=== PATIENT | male | born 1970 | race Caucasian/White ===

== ENCOUNTER 2016-05-29 13:08 | Emergency (ER) | payer OTHER ==
[2016-05-29 14:28] LABS: BASO % 0.4 % (0.0-1.0); EOS # 0.2 K/mm3 (0.0-0.50); EOS % 1.9 % (0.0-3.0); LARGE UNSTAINED CELL # 0.2 K/mm3 (0.0-0.4); LYMPH # 2.6 K/mm3 (1.5-4.5); LYMPH % 32.6 % (24.0-44.0); MEAN CORPUSCULAR HEMOGLOBIN 33.5 pg (27.0-33.0); MEAN CORPUSCULAR HGB CONC 34.2 g/dl (32.0-36.5); MONO # 0.3 K/mm3 (0.0-0.8); MONO % 4.2 % (0.0-5.0); NEUTROPHILS # 4.6 K/mm3 (1.8-7.7); NEUTROPHILS % 58.9 % (36.0-66.0); PLATELET COUNT, AUTOMATED 210 k/mm3 (150-450); RED CELL DISTRIBUTION WIDTH 12.5 % (11.5-14.5); WHITE BLOOD COUNT 7.9 K/mm3 (4.0-10.0)
[2016-05-29 14:51] LABS: ALBUMIN 4.2 GM/DL (3.2-5.2); ALBUMIN/GLOBULIN RATIO 1.14 (1.00-1.93); ALKALINE PHOSPHATASE 63 U/L (45-117); ALT/SGPT 81 U/L (12-78); ANION GAP 8 MEQ/L (8-16); AST/SGOT 41 U/L (15-37); BILIRUBIN,TOTAL 0.7 MG/DL (0.2-1.0); BLOOD UREA NITROGEN 9 MG/DL (7-18); CALCIUM LEVEL 9.4 MG/DL (8.5-10.1); CARBON DIOXIDE LEVEL 26 MEQ/L (21-32); CHLORIDE LEVEL 107 MEQ/L (98-107); CREATININE FOR GFR 0.87 MG/DL (0.70-1.30); GLOMERULAR FILTRATION RATE > 60.0 (>60); GLUCOSE, FASTING 94 MG/DL (70-105); SODIUM LEVEL 141 MEQ/L (136-145); TOTAL PROTEIN 7.9 GM/DL (6.4-8.2)
--- NOTE | 2016-05-29 15:04 | REP ---
Bilateral lower extremity Duplex Doppler venous ultrasound: Real time compression and duplex Doppler interrogation of the bilateral lower extremity deep venous system is performed. Bilaterally, the common femoral, superficial femoral and popliteal veins are fully compressible with transducer pressure and demonstrate normal spontaneous and phasic flow, without evidence of deep venous thrombosis. Impression: No evidence of deep venous thrombosis of the bilateral lower extremity femoral popliteal venous system. Incidental note is made of an enlarged lymph node in the left inguinal region 3.8 x 1.8 x 1.7 cm. Signed by Demetrius Esteban MD 05/29/2016 02:56 P
[2016-05-29 15:15] LABS: CALCIUM OXALATE CRYSTALS SMALL
--- NOTE | 2016-05-29 15:39 | EDDOCDS ---
Physician Documentation [facility] Name: Elio Rodriguez Age: 45 yrs Sex: Male : 1970 Arrival Date: 05/29/2016 Time: 13:08 Bed PR Private MD: Doreen Davis E Disposition: 05/29/16 15:28 Discharged to Home/Self Care. Impression: Edema, unspecified - bilateral peripheral. - Condition is Stable. - Discharge Instructions: Edema, [id number]. - Medication Reconciliation, Local Pharmacy Hours form. - Follow up: Doreen Davis; When: Call to arrange an appointment; Reason: Further diagnostic work-up, Recheck today's complaints, Continuance of care. - Problem is an ongoing problem. - Symptoms are unchanged. Historical: - Allergies: no known allergies; - Home Meds: 1. pramipexole 1 mg oral tab four times a day 2. trihexyphenidyl 2 mg Oral tab 3 times per day 3. Azilect 1 mg oral tab 1 tab once daily 4. Xanax 0.25 mg Oral tab 3 times per day prn (Last dose: 05/29/2016 11:30) - PMHx: Parkinson's Disease; - PSHx: throat polyp; - Social history: Smoking status: Patient uses tobacco products, current every day smoker. No barriers to communication noted, The patient speaks fluent Divehi, Speaks appropriately for age. - Family history: Not pertinent. - : The pt / caregiver states he / she is not on anticoagulants. Home medication list is obtained from the patient. - Exposure Risk Screening:: None identified. Vital Signs: 05/29 13:09 BP 139 / 99; Pulse 86; Resp 18; Temp 98.6; Pulse Ox 97% ; Weight 117.03 kg / 258.01 elp lbs; Height 5 ft. 11 in. (180.34 cm); Pain 0/10; 15:19 BP 130 / 77; Pulse 70; Resp 18; Temp 96.7(T); Pulse Ox 97% on R/A; Pain 0/10; jb5 13:09 Body Mass Index 35.98 (117.03 kg, 180.34 cm) elp MDM: 13:38 Financial registration complete. lg 14:07 CBC with Diff Ordered. EDMS 14:07 Complete Comphrensive Metabolic Ordered. EDMS 14:07 Pt & Aptt Ordered. EDMS 14:08 US Lower Extremity R/O DVT Ordered. EDMS 14:11 Urinalysis Ordered. EDMS 15:15 CBC with Diff Reviewed. btw 15:15 Complete Comphrensive Metabolic Reviewed. btw 15:15 Pt & Aptt Reviewed. btw 15:16 [facility] Payment Agreement was scanned into [employer] and attached to record. lg 15:25 Urinalysis Reviewed. btw Signatures: Dispatcher MedHost EDMS Roxanne Adorno, RN RN srm Sonja White, Reg Reg lg Ricardo Martin PA PA btw Brit Moreira RN RN [facility] The chart was reviewed and I authenticate all verbal orders and agree with the evaluation and treatment provided.Attachments: 15:16 [facility] Payment Agreement lg MTDD
--- NOTE | 2016-05-29 15:39 | EDDOCDS ---
Nurse's Notes [facility] Name: Elio Rodriguez Age: 45 yrs Sex: Male : 1970 Arrival Date: 05/29/2016 Time: 13:08 Bed PR Private MD: Doreen Davis E Diagnosis: Edema, unspecified-bilateral peripheral Presentation: 05/29 13:11 Presenting complaint: Patient states: 2-3 days bilateral leg swelling. no pain. Adult [facility] Sepsis Screening: The patient does not have new or worsening altered mentation. Patient's respiratory rate is less than 22. Systolic blood pressure is greater than 100. Patient has a qSOFA score of 0- Negative Sepsis Screen. Suicide/Homicide risk assessment- the patient denies having any suicidal and/or homicidal ideations and does not present with any other emotional, behavioral or mental health complaints. Status: Patient is not a program services assistant or dependent. Transition of care: patient was not received from another setting of care. 13:11 Acuity: LISSA Level 4 [facility] 13:11 Method Of Arrival: Walkin/Carried/Asstd [facility] Triage Assessment: 13:14 General: Appears in no apparent distress, Behavior is appropriate for age, cooperative. srm Pain: Denies pain. HIV screening NA for this visit Offered previously. Historical: - Allergies: no known allergies; - Home Meds: 1. pramipexole 1 mg oral tab four times a day 2. trihexyphenidyl 2 mg Oral tab 3 times per day 3. Azilect 1 mg oral tab 1 tab once daily 4. Xanax 0.25 mg Oral tab 3 times per day prn (Last dose: 05/29/2016 11:30) - PMHx: Parkinson's Disease; - PSHx: throat polyp; - Social history: Smoking status: Patient uses tobacco products, current every day smoker. No barriers to communication noted, The patient speaks fluent Vietnamese, Speaks appropriately for age. - Family history: Not pertinent. - : The pt / caregiver states he / she is not on anticoagulants. Home medication list is obtained from the patient. - Exposure Risk Screening:: None identified. Screenin:20 Screening information is obtained from the patient. Fall risk: No risks identified. [facility] Assistance ADL's: requires no assistance with activities of daily living. Abuse/DV Screen: The patient / caregiver reports he/she is: not in a situation that causes fear, pain or injury. Nutritional screening: No deficits noted. Advance Directives: There is no active DNR order. home support is adequate. Assessment: 13:20 General: Appears in no apparent distress, comfortable, Behavior is appropriate for age, [facility] cooperative. Musculoskeletal: Range of motion intact in all extremities. ambulates with steady gait, no assist required. 15:36 General: Appears in no apparent distress, comfortable, Behavior is appropriate for age, [facility] cooperative, reviewed discharge instructions with patient, encouraged and answered questions, patient denies further needs. Vital Signs: 13:09 BP 139 / 99; Pulse 86; Resp 18; Temp 98.6; Pulse Ox 97% ; Weight 117.03 kg; Height 5 elp ft. 11 in. (180.34 cm); Pain 0/10; 15:19 BP 130 / 77; Pulse 70; Resp 18; Temp 96.7(T); Pulse Ox 97% on R/A; Pain 0/10; jb5 13:09 Body Mass Index 35.98 (117.03 kg, 180.34 cm) el Vitals: 13:09 Log In Time: May 29, 2016 at 13:07. el ED Course: 13:09 Patient visited by Shaye uQintana PCA. elp 13:09 Doreen Davis is Private Physician. elp 13:09 Patient moved to Waiting elp 13:10 Patient visited by Shaye Quintana PCA. elp 13:10 Patient moved to Pre RCE elp 13:12 Triage Initiated srm 13:18 Patient moved to Triage 1 jb5 13:20 The patient / caregiver is instructed regarding the plan of care and ED course. cj 13:31 Ricardo Martin PA is PHCP. btw 13:31 Mickey Davidson MD is Attending Physician. btw 13:31 Patient visited by Ricardo Martin PA. btw 14:14 Patient visited by Adriana Calle PCA. jb5 14:14 Patient moved to TR1 jb5 14:14 Urinalysis Sent. jb5 14:14 Pt & Aptt Sent. jb5 14:14 Complete Comphrensive Metabolic Sent. jb5 14:14 CBC with Diff Sent. jb5 15:12 Patient visited by Adriana Calle PCA. jb5 15:15 Patient moved to jb5 15:16 [facility] [place] Agreement was scanned into [employer] and attached to record. lg 15:19 Patient visited by Adriana Calle PCA. jb5 15:28 Doreen Davis is Referral Physician. btw 15:30 US Lower Extremity R/O DVT Returned. EDMS 15:36 No IV's were initiated during this patient's visit. No procedures done that require [facility] assistance. Order Results: Lab Order: CBC with Diff; SPEC'M 05/29/16 14:15 Test: WHITE BLOOD COUNT; Value: 7.9; Range: 4.0-10.0; Units: K/mm3; Status: F Test: RED BLOOD COUNT; Value: 4.90; Range: 4.30-6.10; Units: M/mm3; Status: F Test: HEMOGLOBIN; Value: 16.4; Range: 14.0-18.0; Units: g/dl; Status: F Test: HEMATOCRIT; Value: 48.0; Range: 42.0-52.0; Units: %; Status: F Test: MEAN CORPUSCULAR VOLUME; Value: 98.0; Range: 80.0-96.0; Abnormal: Above high normal; Units: fl; Status: F Test: MEAN CORPUSCULAR HEMOGLOBIN; Value: 33.5; Range: 27.0-33.0; Abnormal: Above high normal; Units: pg; Status: F Test: MEAN CORPUSCULAR HGB CONC; Value: 34.2; Range: 32.0-36.5; Units: g/dl; Status: F Test: RED CELL DISTRIBUTION WIDTH; Value: 12.5; Range: 11.5-14.5; Units: %; Status: F Test: PLATELET COUNT, AUTOMATED; Value: 210; Range: 150-450; Units: k/mm3; Status: F Test: NEUTROPHILS %; Value: 58.9; Range: 36.0-66.0; Units: %; Status: F Test: LYMPH %; Value: 32.6; Range: 24.0-44.0; Units: %; Status: F Test: MONO %; Value: 4.2; Range: 0.0-5.0; Units: %; Status: F Test: EOS %; Value: 1.9; Range: 0.0-3.0; Units: %; Status: F Test: BASO %; Value: 0.4; Range: 0.0-1.0; Units: %; Status: F Test: LARGE UNSTAINED CELL %; Value: 2.0; Range: 0.0-4.0; Units: %; Status: F Test: NEUTROPHILS #; Value: 4.6; Range: 1.8-7.7; Units: K/mm3; Status: F Test: LYMPH #; Value: 2.6; Range: 1.5-4.5; Units: K/mm3; Status: F Test: MONO #; Value: 0.3; Range: 0.0-0.8; Units: K/mm3; Status: F Test: EOS #; Value: 0.2; Range: 0.0-0.50; Units: K/mm3; Status: F Test: BASO #; Value: 0.0; Range: 0.0-0.2; Units: K/mm3; Status: F Test: LARGE UNSTAINED CELL #; Value: 0.2; Range: 0.0-0.4; Units: K/mm3; Status: F Lab Order: Complete Comphrensive Metabolic; SPEC'M 05/29/16 14:15 Test: GLUCOSE, FASTING; Value: 94; Range: 70-105; Units: MG/DL; Status: F Test: BLOOD UREA NITROGEN; Value: 9; Range: 7-18; Units: MG/DL; Status: F Test: CREATININE FOR GFR; Value: 0.87; Range: 0.70-1.30; Units: MG/DL; Status: F Test: GLOMERULAR FILTRATION RATE; Value: > 60.0; Range: >60; Status: F Test: SODIUM LEVEL; Value: 141; Range: 136-145; Units: MEQ/L; Status: F Test: POTASSIUM SERUM; Value: 4.0; Range: 3.5-5.1; Units: MEQ/L; Status: F Test: CHLORIDE LEVEL; Value: 107; Range: 98-107; Units: MEQ/L; Status: F Test: CARBON DIOXIDE LEVEL; Value: 26; Range: 21-32; Units: MEQ/L; Status: F Test: ANION GAP; Value: 8; Range: 8-16; Units: MEQ/L; Status: F Test: CALCIUM LEVEL; Value: 9.4; Range: 8.5-10.1; Units: MG/DL; Status: F Test: AST/SGOT; Value: 41; Range: 15-37; Abnormal: Above high normal; Units: U/L; Status: F Test: ALT/SGPT; Value: 81; Range: 12-78; Abnormal: Above high normal; Units: U/L; Status: F Test: ALKALINE PHOSPHATASE; Value: 63; Range: 45-117; Units: U/L; Status: F Test: BILIRUBIN,TOTAL; Value: 0.7; Range: 0.2-1.0; Units: MG/DL; Status: F Test: TOTAL PROTEIN; Value: 7.9; Range: 6.4-8.2; Units: GM/DL; Status: F Test: ALBUMIN; Value: 4.2; Range: 3.2-5.2; Units: GM/DL; Status: F Test: ALBUMIN/GLOBULIN RATIO; Value: 1.14; Range: 1.00-1.93; Status: F Test Note: ; Units are mL/min/1.73 m2 Chronic Kidney Disease Staging per NKF: Stage I & II GFR >=60 Normal to Mildly Decreased Stage III GFR 30-59 Moderately Decreased Stage IV GFR 15-29 Severely Decreased Stage V GFR <15 Very Little GFR Left ESRD GFR <15 on ROCK SINGER Lab Order: Pt & Aptt; SPEC'M 05/29/16 14:15 Test: PROTHROMBIN TIME; Value: 13.3; Range: 12.3-14.5; Units: SECONDS; Status: F Test: INR; Value: 1.00; Status: F Test: PARTIAL THROMBOPLASTIN TIME; Value: 27.0; Range: 26.6-37.1; Units: SECONDS; Status: F Test Note: ; THERAPUTIC HUMAN INR VALUES INDICATIONS NORMAL RANGES PROPHYLAXIS/TREATMENT OF: VENOUS THROMBOSIS 2.0-3.0 PULMONARY EMBOLISM 2.0-3.0 PREVENTION OF SYSTEMIC EMBOLISM FROM: TISSUE HEART VALVES 2.0-3.0 ACUTE MYOCARDIAL INFARCTION 2.0-3.0 VALVULAR HEART DISEASE 2.0-3.0 ATRIAL FIBRILLATION 2.0-3.0 MECHANICAL VALVES(HIGH RISK) 2.5-3.5 RECURRENT MYOCARDIAL INFARCTION 2.5-3.5 Lab Order: Urinalysis; SPEC'M 05/29/16 14:57 Test: APPEARANCE, URINE; Value: HAZY; Range: CLEAR; Status: F Test: COLOR, URINE; Value: YELLOW; Range: YELLOW; Status: F Test: PH,URINE; Value: 6.0; Range: 5.0-9.0; Units: UNITS; Status: F Test: SPECIFIC GRAVITY URINE AUTO; Value: 1.018; Range: 1.002-1.035; Status: F Test: PROTEIN, URINE AUTO; Value: NEGATIVE; Range: NEGATIVE; Units: mg/dL; Status: F Test: GLUCOSE, URINE (UA) AUTO; Value: NEGATIVE; Range: NEGATIVE; Units: mg/dL; Status: F Test: KETONE, URINE AUTO; Value: NEGATIVE; Range: NEGATIVE; Units: mg/dL; Status: F Test: UROBILINOGEN, URINE AUTO; Value: 0.2; Range: 0.0-2.0; Units: mg/dL; Status: F Test: BILIRUBIN, URINE AUTO; Value: NEGATIVE; Range: NEGATIVE; Status: F Test: NITRITE, URINE AUTO; Value: NEGATIVE; Range: NEGATIVE; Status: F Test: LEUKOCYTE ESTERASE, URINE AUTO; Value: TRACE; Range: NEGATIVE; Abnormal: Above high normal; Status: F Test: BLOOD, URINE BLOOD; Value: 3+; Range: NEGATIVE; Abnormal: Above high normal; Status: F Test: WBC, URINE AUTO; Value: 7; Range: 0-3; Abnormal: Above high normal; Units: /HPF; Status: F Test: RBC, URINE AUTO; Value: TNTC; Range: 0-3; Abnormal: Above high normal; Units: /HPF; Status: F Test: BACTERIA, URINE AUTO; Value: NEGATIVE; Range: NEGATIVE; Status: F Test: SQUAMOUS EPITHELIAL CELL UR AU; Value: 2; Range: 0-6; Units: /HPF; Status: F Test: MUCUS, URINE; Value: SMALL; Range: NEGATIVE; Status: F Test: SPERM, URINE AUTO; Value: SMALL; Range: NONE; Abnormal: Above high normal; Status: F Test: HYALINE CAST, URINE AUTO; Value: 0; Range: 0-1; Units: /LPF; Status: F Test: AMORPHOUS SEDIMENT; Value: SMALL; Range: NEGATIVE; Abnormal: Above high normal; Status: F Test: CALCIUM OXALATE CRYSTALS; Value: SMALL; Range: NONE; Status: F Radiology Order: US Lower Extremity R/O DVT Test: US Lower Extremity R/O DVT REASON FOR EXAMINATION: ? DVT; Bilateral lower extremity Duplex Doppler venous ultrasound:; ; Real time compression and duplex Doppler interrogation of the bilateral lower; extremity deep venous system is performed. Bilaterally, the common femoral,; superficial femoral and popliteal veins are fully compressible with transducer; pressure and demonstrate normal spontaneous and phasic flow, without evidence of; deep venous thrombosis.; ; Impression:; ; No evidence of deep venous thrombosis of the bilateral lower extremity femoral; popliteal venous system. Incidental note is made of an enlarged lymph node in; the left inguinal region 3.8 x 1.8 x 1.7 cm.; ; ; Signed by; Demetrius Esteban MD 05/29/2016 02:56 P; Outcome: 15:28 Discharge ordered by Provider. btw 15:36 Discharge Assessment: Patient awake, alert and oriented x 3. No cognitive and/or [facility] functional deficits noted. Patient verbalized understanding of disposition instructions. patient administered narcotics - no. The following High Risk Discharge criteria are identified: None. Discharged to home ambulatory. Condition: good Condition: stable Condition: improved. Discharge instructions given to patient, Instructed on discharge instructions, follow up and referral plans. Demonstrated understanding of instructions, Pt was receptive of discharge instructions/ teaching. Ultrasound Study completed. Property :Personal belongings accompany Pt. 15:38 Patient left the ED. [facility] Signatures: Dispatcher [employer] EDMS Roxanne Adorno, Sonja Ahuja RN, Reg Reg Adriana Umana, [employer] jb5 Ricardo Martin PA PA btw Brit Moreira RN RN [facility] Shaye Quintana, [employer] elp MTDD
--- NOTE | 2016-06-02 09:18 | EDDOCDS ---
Physician Documentation [facility] Name: Elio Rodriguez Age: 45 yrs Sex: Male : 1970 Arrival Date: 05/29/2016 Time: 13:08 Bed PR Private MD: Doreen Russo E Disposition: 05/29/16 15:28 Discharged to Home/Self Care. Impression: Edema, unspecified - bilateral peripheral. - Condition is Stable. - Discharge Instructions: Edema, [id number]. - Medication Reconciliation, Local Pharmacy Hours form. - Follow up: Doreen Russo; When: Call to arrange an appointment; Reason: Further diagnostic work-up, Recheck today's complaints, Continuance of care. - Problem is an ongoing problem. - Symptoms are unchanged. Historical: - Allergies: no known allergies; - Home Meds: 1. pramipexole 1 mg oral tab four times a day 2. trihexyphenidyl 2 mg Oral tab 3 times per day 3. Azilect 1 mg oral tab 1 tab once daily 4. Xanax 0.25 mg Oral tab 3 times per day prn (Last dose: 05/29/2016 11:30) - PMHx: Parkinson's Disease; - PSHx: throat polyp; - Social history: Smoking status: Patient uses tobacco products, current every day smoker. No barriers to communication noted, The patient speaks fluent Portuguese, Speaks appropriately for age. - Family history: Not pertinent. - : The pt / caregiver states he / she is not on anticoagulants. Home medication list is obtained from the patient. - Exposure Risk Screening:: None identified. Vital Signs: 05/29 13:09 BP 139 / 99; Pulse 86; Resp 18; Temp 98.6; Pulse Ox 97% ; Weight 117.03 kg / 258.01 elp lbs; Height 5 ft. 11 in. (180.34 cm); Pain 0/10; 15:19 BP 130 / 77; Pulse 70; Resp 18; Temp 96.7(T); Pulse Ox 97% on R/A; Pain 0/10; jb5 13:09 Body Mass Index 35.98 (117.03 kg, 180.34 cm) elp MDM: 13:38 Financial registration complete. lg 14:07 CBC with Diff Ordered. EDMS 14:07 Complete Comphrensive Metabolic Ordered. EDMS 14:07 Pt & Aptt Ordered. EDMS 14:08 US Lower Extremity R/O DVT Ordered. EDMS 14:11 Urinalysis Ordered. EDMS 15:15 CBC with Diff Reviewed. btw 15:15 Complete Comphrensive Metabolic Reviewed. btw 15:15 Pt & Aptt Reviewed. btw 15:16 [facility] [place] Agreement was scanned into [employer] and attached to record. lg 15:25 Urinalysis Reviewed. btw 05/30 09:19 T-Sheet-- Draft Copy was scanned into [employer] and attached to record. seh 14:58 ED course: dr russo faxed formal report of us for mlg. ml Signatures: Dispatcher MedHost EDME Shereen Awad MD MD ml Michelson, Staci, RN RN [facility] Sonja White, Reg Reg lg Ricardo Martin PA PA [facility] Brit Moreira RN RN [facility] Samantha Barth [facility] The chart was reviewed and I authenticate all verbal orders and agree with the evaluation and treatment provided.Attachments: 05/29 15:16 [facility] Payment Agreement lg 05/30 09:19 T-Sheet-- Draft Copy se Chart Complete MTDD
--- NOTE | 2016-06-02 09:18 | EDDOCDS ---
Physician Documentation [facility] Name: Elio Rodriguez Age: 45 yrs Sex: Male : 1970 Arrival Date: 05/29/2016 Time: 13:08 Bed PR Private MD: Doreen Russo E Disposition: 05/29/16 15:28 Discharged to Home/Self Care. Impression: Edema, unspecified - bilateral peripheral. - Condition is Stable. - Discharge Instructions: Edema, [id number]. - Medication Reconciliation, Local Pharmacy Hours form. - Follow up: Doreen Russo; When: Call to arrange an appointment; Reason: Further diagnostic work-up, Recheck today's complaints, Continuance of care. - Problem is an ongoing problem. - Symptoms are unchanged. Historical: - Allergies: no known allergies; - Home Meds: 1. pramipexole 1 mg oral tab four times a day 2. trihexyphenidyl 2 mg Oral tab 3 times per day 3. Azilect 1 mg oral tab 1 tab once daily 4. Xanax 0.25 mg Oral tab 3 times per day prn (Last dose: 05/29/2016 11:30) - PMHx: Parkinson's Disease; - PSHx: throat polyp; - Social history: Smoking status: Patient uses tobacco products, current every day smoker. No barriers to communication noted, The patient speaks fluent Faroese, Speaks appropriately for age. - Family history: Not pertinent. - : The pt / caregiver states he / she is not on anticoagulants. Home medication list is obtained from the patient. - Exposure Risk Screening:: None identified. Vital Signs: 05/29 13:09 BP 139 / 99; Pulse 86; Resp 18; Temp 98.6; Pulse Ox 97% ; Weight 117.03 kg / 258.01 elp lbs; Height 5 ft. 11 in. (180.34 cm); Pain 0/10; 15:19 BP 130 / 77; Pulse 70; Resp 18; Temp 96.7(T); Pulse Ox 97% on R/A; Pain 0/10; jb5 13:09 Body Mass Index 35.98 (117.03 kg, 180.34 cm) elp MDM: 13:38 Financial registration complete. lg 14:07 CBC with Diff Ordered. EDMS 14:07 Complete Comphrensive Metabolic Ordered. EDMS 14:07 Pt & Aptt Ordered. EDMS 14:08 US Lower Extremity R/O DVT Ordered. EDMS 14:11 Urinalysis Ordered. EDMS 15:15 CBC with Diff Reviewed. btw 15:15 Complete Comphrensive Metabolic Reviewed. btw 15:15 Pt & Aptt Reviewed. btw 15:16 [facility] [place] Agreement was scanned into [employer] and attached to record. lg 15:25 Urinalysis Reviewed. btw 05/30 09:19 T-Sheet-- Draft Copy was scanned into [employer] and attached to record. seh 14:58 ED course: dr russo faxed formal report of us for mlg. ml Signatures: Dispatcher [employer] EDND Shereen Awad MD MD ml Michelson, Staci, RN RN [facility] Sonja White, Reg Reg lg Ricardo Martin PA PA [facility] Brit Moreira RN RN [facility] Samantha Barth [facility] The chart was reviewed and I authenticate all verbal orders and agree with the evaluation and treatment provided.Attachments: 05/29 15:16 COUNTS INCLUDE 234 BEDS AT THE [facility] Payment Agreement lg 05/30 09:19 T-Sheet-- Draft Copy se Chart Complete MTDD
--- NOTE | 2016-06-02 09:19 | EDDOCDS ---
Nurse's Notes Name: Elio Rodriguez Age: 45 yrs Sex: Male : 1970 Arrival Date: 05/29/2016 Time: 13:08 Bed PR Private MD: Doreen Davis E Diagnosis: Edema, unspecified-bilateral peripheral Presentation: 05/29 13:11 Presenting complaint: Patient states: 2-3 days bilateral leg swelling. no pain. Adult [facility] Sepsis Screening: The patient does not have new or worsening altered mentation. Patient's respiratory rate is less than 22. Systolic blood pressure is greater than 100. Patient has a qSOFA score of 0- Negative Sepsis Screen. Suicide/Homicide risk assessment- the patient denies having any suicidal and/or homicidal ideations and does not present with any other emotional, behavioral or mental health complaints. Status: Patient is not a customer sales service manager or dependent. Transition of care: patient was not received from another setting of care. 13:11 Acuity: LISSA Level 4 [facility] 13:11 Method Of Arrival: Walkin/Carried/Asstd [facility] Triage Assessment: 13:14 General: Appears in no apparent distress, Behavior is appropriate for age, cooperative. srm Pain: Denies pain. HIV screening NA for this visit Offered previously. Historical: - Allergies: no known allergies; - Home Meds: 1. pramipexole 1 mg oral tab four times a day 2. trihexyphenidyl 2 mg Oral tab 3 times per day 3. Azilect 1 mg oral tab 1 tab once daily 4. Xanax 0.25 mg Oral tab 3 times per day prn (Last dose: 05/29/2016 11:30) - PMHx: Parkinson's Disease; - PSHx: throat polyp; - Social history: Smoking status: Patient uses tobacco products, current every day smoker. No barriers to communication noted, The patient speaks fluent Latvian, Speaks appropriately for age. - Family history: Not pertinent. - : The pt / caregiver states he / she is not on anticoagulants. Home medication list is obtained from the patient. - Exposure Risk Screening:: None identified. Screenin:20 Screening information is obtained from the patient. Fall risk: No risks identified. [facility] Assistance ADL's: requires no assistance with activities of daily living. Abuse/DV Screen: The patient / caregiver reports he/she is: not in a situation that causes fear, pain or injury. Nutritional screening: No deficits noted. Advance Directives: There is no active DNR order. home support is adequate. Assessment: 13:20 General: Appears in no apparent distress, comfortable, Behavior is appropriate for age, [facility] cooperative. Musculoskeletal: Range of motion intact in all extremities. ambulates with steady gait, no assist required. 15:36 General: Appears in no apparent distress, comfortable, Behavior is appropriate for age, [facility] cooperative, reviewed discharge instructions with patient, encouraged and answered questions, patient denies further needs. Vital Signs: 13:09 BP 139 / 99; Pulse 86; Resp 18; Temp 98.6; Pulse Ox 97% ; Weight 117.03 kg; Height 5 elp ft. 11 in. (180.34 cm); Pain 0/10; 15:19 BP 130 / 77; Pulse 70; Resp 18; Temp 96.7(T); Pulse Ox 97% on R/A; Pain 0/10; jb5 13:09 Body Mass Index 35.98 (117.03 kg, 180.34 cm) el Vitals: 13:09 Log In Time: May 29, 2016 at 13:07. el ED Course: 13:09 Patient visited by Shaye Quintana PCA. elp 13:09 Doreen Davis is Private Physician. elp 13:09 Patient moved to Waiting elp 13:10 Patient visited by Shaye Quintana PCA. elp 13:10 Patient moved to Pre RCE elp 13:12 Triage Initiated srm 13:18 Patient moved to Triage 1 jb5 13:20 The patient / caregiver is instructed regarding the plan of care and ED course. cj 13:31 Ricardo Martin PA is PHCP. btw 13:31 Mickey Davidson MD is Attending Physician. btw 13:31 Patient visited by Ricardo Martin PA. btw 14:14 Patient visited by Adriana Calle PCA. jb5 14:14 Patient moved to TR1 jb5 14:14 Urinalysis Sent. jb5 14:14 Pt & Aptt Sent. jb5 14:14 Complete Comphrensive Metabolic Sent. jb5 14:14 CBC with Diff Sent. jb5 15:12 Patient visited by Adriana Calle PCA. jb5 15:15 Patient moved to jb5 15:16 [facility] [place] Agreement was scanned into [employer] and attached to record. lg 15:19 Patient visited by Adriana Calle PCA. jb5 15:28 Doreen Davis is Referral Physician. btw 15:30 US Lower Extremity R/O DVT Returned. EDMS 15:36 No IV's were initiated during this patient's visit. No procedures done that require [facility] assistance. 05/30 09:19 T-Sheet-- Draft Copy was scanned into [employer] and attached to record. [facility] Order Results: Lab Order: CBC with Diff; SPEC'M 05/29/16 14:15 Test: WHITE BLOOD COUNT; Value: 7.9; Range: 4.0-10.0; Units: K/mm3; Status: F Test: RED BLOOD COUNT; Value: 4.90; Range: 4.30-6.10; Units: M/mm3; Status: F Test: HEMOGLOBIN; Value: 16.4; Range: 14.0-18.0; Units: g/dl; Status: F Test: HEMATOCRIT; Value: 48.0; Range: 42.0-52.0; Units: %; Status: F Test: MEAN CORPUSCULAR VOLUME; Value: 98.0; Range: 80.0-96.0; Abnormal: Above high normal; Units: fl; Status: F Test: MEAN CORPUSCULAR HEMOGLOBIN; Value: 33.5; Range: 27.0-33.0; Abnormal: Above high normal; Units: pg; Status: F Test: MEAN CORPUSCULAR HGB CONC; Value: 34.2; Range: 32.0-36.5; Units: g/dl; Status: F Test: RED CELL DISTRIBUTION WIDTH; Value: 12.5; Range: 11.5-14.5; Units: %; Status: F Test: PLATELET COUNT, AUTOMATED; Value: 210; Range: 150-450; Units: k/mm3; Status: F Test: NEUTROPHILS %; Value: 58.9; Range: 36.0-66.0; Units: %; Status: F Test: LYMPH %; Value: 32.6; Range: 24.0-44.0; Units: %; Status: F Test: MONO %; Value: 4.2; Range: 0.0-5.0; Units: %; Status: F Test: EOS %; Value: 1.9; Range: 0.0-3.0; Units: %; Status: F Test: BASO %; Value: 0.4; Range: 0.0-1.0; Units: %; Status: F Test: LARGE UNSTAINED CELL %; Value: 2.0; Range: 0.0-4.0; Units: %; Status: F Test: NEUTROPHILS #; Value: 4.6; Range: 1.8-7.7; Units: K/mm3; Status: F Test: LYMPH #; Value: 2.6; Range: 1.5-4.5; Units: K/mm3; Status: F Test: MONO #; Value: 0.3; Range: 0.0-0.8; Units: K/mm3; Status: F Test: EOS #; Value: 0.2; Range: 0.0-0.50; Units: K/mm3; Status: F Test: BASO #; Value: 0.0; Range: 0.0-0.2; Units: K/mm3; Status: F Test: LARGE UNSTAINED CELL #; Value: 0.2; Range: 0.0-0.4; Units: K/mm3; Status: F Lab Order: Complete Comphrensive Metabolic; SPEC'M 05/29/16 14:15 Test: GLUCOSE, FASTING; Value: 94; Range: 70-105; Units: MG/DL; Status: F Test: BLOOD UREA NITROGEN; Value: 9; Range: 7-18; Units: MG/DL; Status: F Test: CREATININE FOR GFR; Value: 0.87; Range: 0.70-1.30; Units: MG/DL; Status: F Test: GLOMERULAR FILTRATION RATE; Value: > 60.0; Range: >60; Status: F Test: SODIUM LEVEL; Value: 141; Range: 136-145; Units: MEQ/L; Status: F Test: POTASSIUM SERUM; Value: 4.0; Range: 3.5-5.1; Units: MEQ/L; Status: F Test: CHLORIDE LEVEL; Value: 107; Range: 98-107; Units: MEQ/L; Status: F Test: CARBON DIOXIDE LEVEL; Value: 26; Range: 21-32; Units: MEQ/L; Status: F Test: ANION GAP; Value: 8; Range: 8-16; Units: MEQ/L; Status: F Test: CALCIUM LEVEL; Value: 9.4; Range: 8.5-10.1; Units: MG/DL; Status: F Test: AST/SGOT; Value: 41; Range: 15-37; Abnormal: Above high normal; Units: U/L; Status: F Test: ALT/SGPT; Value: 81; Range: 12-78; Abnormal: Above high normal; Units: U/L; Status: F Test: ALKALINE PHOSPHATASE; Value: 63; Range: 45-117; Units: U/L; Status: F Test: BILIRUBIN,TOTAL; Value: 0.7; Range: 0.2-1.0; Units: MG/DL; Status: F Test: TOTAL PROTEIN; Value: 7.9; Range: 6.4-8.2; Units: GM/DL; Status: F Test: ALBUMIN; Value: 4.2; Range: 3.2-5.2; Units: GM/DL; Status: F Test: ALBUMIN/GLOBULIN RATIO; Value: 1.14; Range: 1.00-1.93; Status: F Test Note: ; Units are mL/min/1.73 m2 Chronic Kidney Disease Staging per NKF: Stage I & II GFR >=60 Normal to Mildly Decreased Stage III GFR 30-59 Moderately Decreased Stage IV GFR 15-29 Severely Decreased Stage V GFR <15 Very Little GFR Left ESRD GFR <15 on SIDE PANEL PADDER Lab Order: Pt & Aptt; SPEC'M 05/29/16 14:15 Test: PROTHROMBIN TIME; Value: 13.3; Range: 12.3-14.5; Units: SECONDS; Status: F Test: INR; Value: 1.00; Status: F Test: PARTIAL THROMBOPLASTIN TIME; Value: 27.0; Range: 26.6-37.1; Units: SECONDS; Status: F Test Note: ; THERAPUTIC HUMAN INR VALUES INDICATIONS NORMAL RANGES PROPHYLAXIS/TREATMENT OF: VENOUS THROMBOSIS 2.0-3.0 PULMONARY EMBOLISM 2.0-3.0 PREVENTION OF SYSTEMIC EMBOLISM FROM: TISSUE HEART VALVES 2.0-3.0 ACUTE MYOCARDIAL INFARCTION 2.0-3.0 VALVULAR HEART DISEASE 2.0-3.0 ATRIAL FIBRILLATION 2.0-3.0 MECHANICAL VALVES(HIGH RISK) 2.5-3.5 RECURRENT MYOCARDIAL INFARCTION 2.5-3.5 Lab Order: Urinalysis; SPEC'M 05/29/16 14:57 Test: APPEARANCE, URINE; Value: HAZY; Range: CLEAR; Status: F Test: COLOR, URINE; Value: YELLOW; Range: YELLOW; Status: F Test: PH,URINE; Value: 6.0; Range: 5.0-9.0; Units: UNITS; Status: F Test: SPECIFIC GRAVITY URINE AUTO; Value: 1.018; Range: 1.002-1.035; Status: F Test: PROTEIN, URINE AUTO; Value: NEGATIVE; Range: NEGATIVE; Units: mg/dL; Status: F Test: GLUCOSE, URINE (UA) AUTO; Value: NEGATIVE; Range: NEGATIVE; Units: mg/dL; Status: F Test: KETONE, URINE AUTO; Value: NEGATIVE; Range: NEGATIVE; Units: mg/dL; Status: F Test: UROBILINOGEN, URINE AUTO; Value: 0.2; Range: 0.0-2.0; Units: mg/dL; Status: F Test: BILIRUBIN, URINE AUTO; Value: NEGATIVE; Range: NEGATIVE; Status: F Test: NITRITE, URINE AUTO; Value: NEGATIVE; Range: NEGATIVE; Status: F Test: LEUKOCYTE ESTERASE, URINE AUTO; Value: TRACE; Range: NEGATIVE; Abnormal: Above high normal; Status: F Test: BLOOD, URINE BLOOD; Value: 3+; Range: NEGATIVE; Abnormal: Above high normal; Status: F Test: WBC, URINE AUTO; Value: 7; Range: 0-3; Abnormal: Above high normal; Units: /HPF; Status: F Test: RBC, URINE AUTO; Value: TNTC; Range: 0-3; Abnormal: Above high normal; Units: /HPF; Status: F Test: BACTERIA, URINE AUTO; Value: NEGATIVE; Range: NEGATIVE; Status: F Test: SQUAMOUS EPITHELIAL CELL UR AU; Value: 2; Range: 0-6; Units: /HPF; Status: F Test: MUCUS, URINE; Value: SMALL; Range: NEGATIVE; Status: F Test: SPERM, URINE AUTO; Value: SMALL; Range: NONE; Abnormal: Above high normal; Status: F Test: HYALINE CAST, URINE AUTO; Value: 0; Range: 0-1; Units: /LPF; Status: F Test: AMORPHOUS SEDIMENT; Value: SMALL; Range: NEGATIVE; Abnormal: Above high normal; Status: F Test: CALCIUM OXALATE CRYSTALS; Value: SMALL; Range: NONE; Status: F Radiology Order: US Lower Extremity R/O DVT Test: US Lower Extremity R/O DVT REASON FOR EXAMINATION: ? DVT; Bilateral lower extremity Duplex Doppler venous ultrasound:; ; Real time compression and duplex Doppler interrogation of the bilateral lower; extremity deep venous system is performed. Bilaterally, the common femoral,; superficial femoral and popliteal veins are fully compressible with transducer; pressure and demonstrate normal spontaneous and phasic flow, without evidence of; deep venous thrombosis.; ; Impression:; ; No evidence of deep venous thrombosis of the bilateral lower extremity femoral; popliteal venous system. Incidental note is made of an enlarged lymph node in; the left inguinal region 3.8 x 1.8 x 1.7 cm.; ; ; Signed by; Demetrius Esteban MD 05/29/2016 02:56 P; Outcome: 05/29 15:28 Discharge ordered by Provider. bt 15:36 Discharge Assessment: Patient awake, alert and oriented x 3. No cognitive and/or [facility] functional deficits noted. Patient verbalized understanding of disposition instructions. patient administered narcotics - no. The following High Risk Discharge criteria are identified: None. Discharged to home ambulatory. Condition: good Condition: stable Condition: improved. Discharge instructions given to patient, Instructed on discharge instructions, follow up and referral plans. Demonstrated understanding of instructions, Pt was receptive of discharge instructions/ teaching. Ultrasound Study completed. Property :Personal belongings accompany Pt. 15:38 Patient left the ED. [facility] Signatures: Dispatcher [employer] EDMS Roxanne Adorno, Sonja Ahuja RN, Reg Reg Adriana Umana, MILLER ROD MILL MILLER ROD MILL Ricardo Saravia PA PA btw Brit Moreira RN RN [facility] Shaye Quintana, MILLER ROD MILL MILLER ROD MILL maria isabelp Samantha Barth Chart Complete MTDD
== END 2016-05-29 15:38 | disposition home or self-care (01) ==
LOC: M ED 13:08
DX: R60.9 Edema, unspecified (principal); G20 Parkinson's disease; Z72.0 Tobacco use; Z79.899 Other long term (current) drug therapy

== ENCOUNTER → 2016-06-12 | Outpatient (REF) | payer OTHER | LOC: M LAB REF 12:59 | PROVIDERS: ATTEND Internal Medicine | DX: R31.9 Hematuria, unspecified (principal); R10.2 Pelvic and perineal pain ==

== ENCOUNTER → 2016-07-01 | Outpatient (REF) | payer OTHER | LOC: M LAB REF 16:35 | PROVIDERS: ATTEND Internal Medicine | DX: R31.9 Hematuria, unspecified (principal) ==

== ENCOUNTER → 2016-08-20 | Outpatient (REF) | payer OTHER ==
[2016-08-20 14:20] LABS: CALCIUM OXALATE CRYSTALS MODERATE
== END ==
LOC: M SMT 13:49
PROVIDERS: ATTEND Nurse Practitioner Women's Health
DX: R31.29 Other microscopic hematuria (principal)

== ENCOUNTER → 2016-08-24 | Outpatient (CLI) | payer OTHER ==
[2016-08-24 13:45] LABS: ANION GAP 7 MEQ/L (8-16); BLOOD UREA NITROGEN 13 MG/DL (7-18); CALCIUM LEVEL 8.9 MG/DL (8.5-10.1); CARBON DIOXIDE LEVEL 28 MEQ/L (21-32); CHLORIDE LEVEL 106 MEQ/L (98-107); CREATININE FOR GFR 0.94 MG/DL (0.70-1.30); GLOMERULAR FILTRATION RATE > 60.0 (>60); GLUCOSE, FASTING 90 MG/DL (70-105); POTASSIUM SERUM 4.2 MEQ/L (3.5-5.1); SODIUM LEVEL 141 MEQ/L (136-145)
== END ==
LOC: M SMT 10:48
PROVIDERS: ATTEND Nurse Practitioner Women's Health
DX: R31.29 Other microscopic hematuria (principal); Z12.5 Encounter for screening for malignant neoplasm of prostate

== ENCOUNTER → 2016-11-09 | Outpatient (REF) | payer OTHER ==
[2016-11-09 19:45] LABS: CALCIUM OXALATE CRYSTALS MODERATE
== END ==
LOC: M LAB REF 17:16
PROVIDERS: ATTEND Urology
DX: R31.29 Other microscopic hematuria (principal)

== ENCOUNTER → 2016-11-19 | Outpatient (CLI) | payer OTHER ==
[~2016-11-19] MED LIST: AZIL1TAB PO; FLOM5CAP PO; ISOVUE-370 76% 100ML VIAL (Q9967) As Ordered ONE; KETO10TAB PO; PERC5TAB12 PO; PRAM1TAB PO; RASA1TAB PO; SPIR25TA2 PO; TRIH2TAB3 PO; ZOFR4TAB3 PO
--- NOTE | 2016-11-19 13:29 | REP ---
Clinical: Microscopic hematuria. Comparison: 06/05/2016. Technique: Precontrast, contrast enhanced, and delayed images of the abdomen and pelvis using 100 ml Isovue 370 intravenous contrast material with coronal and sagittal re-formations. Findings: 2 mm nonobstructing right renal calculus, multiple nonobstructing left renal calculi up to 6 mm, and 4 mm partially obstructing calculus in the left ureteropelvic junction are identified. Kidneys demonstrate symmetric normal enhancement and excretion patterns. No renal cystic or mass lesions are identified. The bilateral ureters and bladder are normal. Fatty infiltration to the liver noted without focal hepatic lesion. Spleen, pancreas, gallbladder, and bilateral adrenal glands are normal. The enteric system is without obstruction or acute inflammatory process. Normal terminal ileum and appendix identified in the right lower quadrant. Pelvis demonstrates normal bladder and age appropriate prostate/seminal vesicles. Prominent inguinal lymph nodes are nonspecific and measure up to 2.4 cm in left groin. No ascites. No free air. No intraperitoneal or retroperitoneal adenopathy. Abdominal aorta without aneurysm. Musculoskeletal structures intact. Impression: 1. Bilateral nephrolithiasis as described above. 2. Hepatic steatosis. 3. Prominent inguinal lymph nodes otherwise nonspecific. Signed by Kam Castellanos MD 11/19/2016 01:21 P
== END ==
LOC: M RAD 11:14
PROVIDERS: ATTEND Urology
DX: N20.1 Calculus of ureter (principal); K76.0 Fatty (change of) liver, not elsewhere classified

== ENCOUNTER 2016-11-29 11:58 | Emergency (ER) | payer OTHER ==
[~2016-11-29] VITALS: Ht 180.3 cm; Wt 118.2 kg
[2016-11-29] MEDS ORDERED: PRAM1TAB PO (12:12)
[2016-11-29] MEDS ORDERED: TRIH2TAB3 PO (12:12)
[2016-11-29] MEDS ORDERED: SPIR25TA2 PO (12:12)
[2016-11-29] MEDS ORDERED: RASA1TAB PO (12:12)
[2016-11-29] MEDS ORDERED: ONDANSETRON 4MG/2ML VIAL (J2405) IV ONE (12:45)
[2016-11-29] MEDS ORDERED: KETOROLAC 30 MG/ML VIAL (J1885) IV ONE (12:45)
[2016-11-29] MEDS ORDERED: NS 1,000 ML IV ONE (12:45)
[2016-11-29 12:57] LABS: BASO % 0.4 % (0.0-1.0); EOS # 0.1 K/mm3 (0.0-0.50); EOS % 0.5 % (0.0-3.0); LARGE UNSTAINED CELL # 0.1 K/mm3 (0.0-0.4); LARGE UNSTAINED CELL % 0.8 % (0.0-4.0); LYMPH # 1.3 K/mm3 (1.5-4.5); LYMPH % 8.8 % (24.0-44.0); MEAN CORPUSCULAR HEMOGLOBIN 34.8 pg (27.0-33.0); MEAN CORPUSCULAR HGB CONC 34.5 g/dl (32.0-36.5); MEAN CORPUSCULAR VOLUME 100.9 fl (80.0-96.0); MONO # 0.7 K/mm3 (0.0-0.8); MONO % 4.9 % (0.0-5.0); NEUTROPHILS # 11.2 K/mm3 (1.8-7.7); NEUTROPHILS % 84.6 % (36.0-66.0); PLATELET COUNT, AUTOMATED 190 k/mm3 (150-450); RED CELL DISTRIBUTION WIDTH 12.7 % (11.5-14.5); WHITE BLOOD COUNT 13.2 K/mm3 (4.0-10.0)
[2016-11-29] MEDS ORDERED: AZIL1TAB PO (13:08)
[2016-11-29 13:19] LABS: ALBUMIN 3.7 GM/DL (3.2-5.2); ALBUMIN/GLOBULIN RATIO 0.84 (1.00-1.93); ALKALINE PHOSPHATASE 60 U/L (45-117); ALT/SGPT 73 U/L (12-78); ANION GAP 7 MEQ/L (8-16); AST/SGOT 39 U/L (15-37); BILIRUBIN,DIRECT 0.1 MG/DL (0.0-0.2); BILIRUBIN,TOTAL 0.6 MG/DL (0.2-1.0); BLOOD UREA NITROGEN 8 MG/DL (7-18); CARBON DIOXIDE LEVEL 27 MEQ/L (21-32); CHLORIDE LEVEL 106 MEQ/L (98-107); CREATININE FOR GFR 1.22 MG/DL (0.70-1.30); GLOMERULAR FILTRATION RATE > 60.0 (>60); GLUCOSE, FASTING 112 MG/DL (70-105); POTASSIUM SERUM 4.1 MEQ/L (3.5-5.1); SODIUM LEVEL 140 MEQ/L (136-145); TOTAL PROTEIN 8.1 GM/DL (6.4-8.2)
--- NOTE | 2016-11-29 13:31 | REP ---
Clinical: Left groin pain. History of nephrolithiasis. Comparison: 11/19/2016. Findings: New, moderate acute left-sided obstructive uropathy includes edematous enlargement of the kidney with perinephric and proximal periureteral stranding as well as hydroureteronephrosis with a 5 mm obstructing calculus at the ureteropelvic junction (images 60 - 61). Nonobstructing left intrarenal calculi measure up to approximately 8 mm. Nonobstructing right intrarenal calculi measuring up to approximately 3 mm. Bladder is unremarkable. Prostate gland is prominent and measures 4.6 cm transverse diameter. Liver, spleen, pancreas, gallbladder, and bilateral adrenal glands are essentially normal for noncontrast evaluation. The enteric system is without obstruction or acute inflammatory process. Pelvis demonstrates normal bladder and prominent prostate gland. No ascites. No free air. No adenopathy. Abdominal aorta at without aneurysm. Musculoskeletal structures without focal osseous abnormality. Lung bases demonstrate minimal early basilar atelectasis. Impression: 1. Bilateral nephrolithiasis with acute moderate left-sided obstructive uropathy as described above. 2. Prominent prostate gland measuring 4.6 cm transverse diameter. Signed by Kam Castellanos MD 11/29/2016 01:22 P
[2016-11-29] MEDS ORDERED: TAMSULOSIN 0.4 MG CAP PO ONE (14:15)
[2016-11-29] MEDS ORDERED: KETO10TAB PO (15:59)
[2016-11-29] MEDS ORDERED: FLOM5CAP PO (15:59)
[2016-11-29] MEDS ORDERED: PERC5TAB12 PO (15:59)
[2016-11-29] MEDS ORDERED: ZOFR4TAB3 PO (16:02)
[2016-11-29 16:14] VITALS: BP 156/94
== END 2016-11-29 16:18 | disposition home or self-care (01) ==
LOC: M ED 11:58
DX: N13.30 Unspecified hydronephrosis (principal); N20.1 Calculus of ureter; Z87.442 Personal history of urinary calculi; Z79.899 Other long term (current) drug therapy; F17.210 Nicotine dependence, cigarettes, uncomplicated

== ENCOUNTER → 2016-12-14 | Outpatient (REF) | payer OTHER ==
[~2016-12-14] MED LIST changes: -ISOVUE-370 76% 100ML VIAL (Q9967) As Ordered ONE
== END ==
LOC: M SMT 16:49
PROVIDERS: ATTEND Nurse Practitioner Women's Health
DX: R31.29 Other microscopic hematuria (principal)

== ENCOUNTER → 2018-12-23 | Outpatient (REF) | payer MEDICARE, OTHER, SELFPAY ==
[~2018-12-23] MED LIST changes: +FLOM0.4C39 PO; -FLOM5CAP PO; +SPIR-10 PO; -SPIR25TA2 PO; +ZOFR4TAB14 PO; -ZOFR4TAB3 PO
[2018-12-23 13:37] LABS: BASO % 0.2 % (0.0-1.0); EOS # 0.1 10^3/uL (0.0-0.50); HEMOGLOBIN 15.4 g/dl (13.5-17.5); LYMPH # 2.8 10^3/uL (1.5-4.5); LYMPH % 35.1 % (24.0-44.0); MEAN CORPUSCULAR HEMOGLOBIN 34.8 pg (27.0-33.0); MEAN CORPUSCULAR HGB CONC 33.5 g/dl (32.0-36.5); MEAN CORPUSCULAR VOLUME 104.1 fl (80.0-96.0); MONO # 0.5 10^3/uL (0.0-0.8); MONO % 5.8 % (0.0-5.0); NEUTROPHILS # 4.6 10^3/uL (1.8-7.7); NEUTROPHILS % 57.5 % (36.0-66.0); PLATELET COUNT, AUTOMATED 218 10^3/uL (150-450); RED BLOOD COUNT 4.42 10^6/uL (4.30-6.10); WHITE BLOOD COUNT 8.1 10^3/uL (4.0-10.0)
[2018-12-23 14:27] LABS: ALBUMIN 3.8 GM/DL (3.2-5.2); ALT/SGPT 72 U/L (12-78); BILIRUBIN,TOTAL 0.3 MG/DL (0.2-1.0); BLOOD UREA NITROGEN 10 MG/DL (7-18); CARBON DIOXIDE LEVEL 30 MEQ/L (21-32); CHLORIDE LEVEL 105 MEQ/L (98-107); CREATININE FOR GFR 0.97 MG/DL (0.70-1.30); GLOMERULAR FILTRATION RATE > 60.0 (>60); GLUCOSE, FASTING 92 MG/DL (70-100); POTASSIUM SERUM 3.9 MEQ/L (3.5-5.1); SODIUM LEVEL 141 MEQ/L (136-145)
== END ==
LOC: M LABNEURO 10:12
PROVIDERS: ATTEND Physician Assistant Medical
DX: G20 Parkinson's disease (principal); R60.0 Localized edema; R26.81 Unsteadiness on feet

== ENCOUNTER → 2019-04-18 | Outpatient (REF) | payer MEDICARE ==
[2019-04-18 14:11] LABS: BLOOD UREA NITROGEN 13 MG/DL (7-18); CALCIUM LEVEL 8.9 MG/DL (8.5-10.1); CARBON DIOXIDE LEVEL 29 MEQ/L (21-32); CHLORIDE LEVEL 106 MEQ/L (98-107); CREATININE FOR GFR 0.96 MG/DL (0.70-1.30); GLOMERULAR FILTRATION RATE > 60.0 (>60); GLUCOSE, FASTING 84 MG/DL (70-100); POTASSIUM SERUM 3.9 MEQ/L (3.5-5.1); SODIUM LEVEL 142 MEQ/L (136-145)
== END ==
LOC: M LABNEURO 11:29
PROVIDERS: ATTEND Family Medicine
DX: R60.9 Edema, unspecified (principal); M62.838 Other muscle spasm

== ENCOUNTER → 2019-04-18 | Outpatient (REF) | payer MEDICARE | LOC: M LABNEURO 11:34 | PROVIDERS: ATTEND Physician Assistant Medical | DX: M62.838 Other muscle spasm (principal) ==

== ENCOUNTER 2019-06-29 08:34 | Inpatient (IN) | payer MEDICARE ==
[2019-06-29] VITALS (12 sets, daily range): BP systolic 89–114; BP diastolic 54–66; O2SAT 98
[~2019-06-29] VITALS: Ht 177.8 cm; Wt 111.4 kg
[2019-06-29] MEDS ORDERED: NS 1,000 ML IV SCH (08:54)
[2019-06-29] MEDS ORDERED: FURO40TA2 PO (08:57)
[2019-06-29] MEDS ORDERED: BUPR150T3 PO (08:57)
[2019-06-29] MEDS ORDERED: XANA0.25 PO (08:57)
--- NOTE | 2019-06-29 09:25 | REP ---
The CT of the brain without IV contrast: There are no comparisons. There is no acute hemorrhage. There is no edema, mass effect or midline shift. The cortical stripe is unremarkable. Ventricles are normal size. The visualized paranasal sinuses and mastoid air cells are clear. Impression: Essentially negative CT study of the brain. Electronically Signed by Demetrius Schwab MD 06/29/2019 09:17 A
[2019-06-29] MEDS ORDERED: ALPR0.25 PO (09:26)
[2019-06-29 09:36] LABS: VENOUS BASE EXCESS 0.1 (-2.0-2.0); VENOUS HCO3 24.2 MEQ/L (23.0-27.0); VENOUS O2 SATURATION 95.5 % (60.0-80.0); VENOUS PARTIAL PRESSURE CO2 37.4 mmHg (38.0-50.0); VENOUS PH 7.428 UNITS (7.330-7.430); VENOUS STANDARD HCO3 24.5 MEQ/L; VENOUS TOTAL CO2 25.3 MEQ/L (24.0-28.0)
[2019-06-29 09:37] LABS: BASO % 0.3 % (0.0-1.0); EOS # 0.1 10^3/uL (0.0-0.5); EOS % 1.5 % (0.0-3.0); HEMATOCRIT 42.3 % (42.0-52.0); HEMOGLOBIN 13.9 g/dl (13.5-17.5); LYMPH # 1.5 10^3/uL (1.5-5.0); LYMPH % 21.7 % (24.0-44.0); MEAN CORPUSCULAR HEMOGLOBIN 34.2 pg (27.0-33.0); MEAN CORPUSCULAR HGB CONC 32.9 g/dl (32.0-36.5); MEAN CORPUSCULAR VOLUME 104.2 fl (80.0-96.0); MONO # 0.6 10^3/uL (0.0-0.8); MONO % 9.2 % (0.0-5.0); NEUTROPHILS # 4.5 10^3/uL (1.5-8.5); PLATELET COUNT, AUTOMATED 163 10^3/uL (150-450); RED BLOOD COUNT 4.06 10^6/uL (4.30-6.10); WHITE BLOOD COUNT 6.8 10^3/uL (4.0-10.0)
[2019-06-29] MEDS ORDERED: MULTIVITAMIN -ADULT INJECTION 10 ML, THIAMINE INJection 100 MG, FOLIC ACID 1 MG in NS 1... IV ONE (09:45)
[2019-06-29 10:20] LABS: ACETAMINOPHEN LEVEL < 2.0 UG/ML (10.0-30.0); ALBUMIN 2.9 GM/DL (3.2-5.2); ALT/SGPT 193 U/L (12-78); BILIRUBIN,DIRECT 0.3 MG/DL (0.0-0.2); BILIRUBIN,TOTAL 0.8 MG/DL (0.2-1.0); BLOOD UREA NITROGEN 9 MG/DL (7-18); CALCIUM LEVEL 6.7 MG/DL (8.5-10.1); CARBON DIOXIDE LEVEL 24 MEQ/L (21-32); CHLORIDE LEVEL 111 MEQ/L (98-107); CK-MB VALUE MASS 16.3 NG/ML (<3.6); CPK CREATINE PHOSPHOKINASE 1105 U/L (39-308); CREATININE FOR GFR 0.64 MG/DL (0.70-1.30); ETHYL ALCOHOL (ETHANOL) 0.003 % (0.000-0.010); GLOMERULAR FILTRATION RATE > 60.0 (>60); GLUCOSE, FASTING 80 MG/DL (70-100); MB/CK RELATIVE INDEX 1.48 (< OR =4); POTASSIUM SERUM 2.6 MEQ/L (3.5-5.1); SALICYLATE LEVEL < 1.7 MG/DL (5.0-30.0); SODIUM LEVEL 143 MEQ/L (136-145); TOTAL PROTEIN 6.2 GM/DL (6.4-8.2); TROPONIN I < 0.02 NG/ML (< 0.10)
[2019-06-29] MEDS ORDERED: LORazepam 2 MG/ML VIAL (J2060) IV STA ×6 (11:05→13:57)
[2019-06-29] MEDS ORDERED: OXAZEPAM 15 MG CAP PO ONE (11:15)
[2019-06-29] MEDS ORDERED: KCL 10MEQ/100ML SWI (KRUN) 10 MEQ in IV 1 EA IV ONE (12:15)
[2019-06-29] MEDS ORDERED: POTASSIUM CHLORIDE 10 MEQ SR TABLET PO ONE (13:00)
[2019-06-29] MEDS ORDERED: PROPOFOL 1,000 MG/100 ML VIAL As Ordered ONE (13:44)
[2019-06-29] MEDS ORDERED: ETOMIDATE INJ 20MG/10ML VIAL IV STA (13:57)
[2019-06-29 13:58] LABS: AMPHETAMINES LEVEL URINE NEGATIVE (NEGATIVE); BARBITURATES URINE NEGATIVE (NEGATIVE); BENZODIAZEPINES URINE POSITIVE (NEGATIVE); CANNABINOIDS URINE NEGATIVE (NEGATIVE); COCAINE METABOLITE URINE NEGATIVE (NEGATIVE); METHADONE URINE NEGATIVE (NEGATIVE); OPIATES URINE NEGATIVE (NEGATIVE); PHENCYCLIDINE URINE NEGATIVE (NEGATIVE)
[2019-06-29] MEDS ORDERED: HEPARIN SOD (PORCINE) 5000 UNITS/ML VIAL (J1644 PER 1000UNITS) SC SCH (14:00)
[2019-06-29] MEDS ORDERED: propofoL 1,000 MG in IV 1 EA IV SCH (14:00)
[2019-06-29] MEDS ORDERED: SUCCINYLCHOLINE INJ 200 MG/10 ML VIAL (J0330) IV ONE (14:00)
--- NOTE | 2019-06-29 14:14 | REP ---
Portable chest, 01:58 p.m., single AP view with the patient supine, post intubation: There are no comparison studies. There is a nasogastric tube with the tip terminating satisfactorily in the abdomen. The distal tip of the tube is excluded at the inferior film margin. The interstitium of the lung penaloza is diffusely coarsened and indistinct. This could represent hypoventilation or could represent interstitial infiltrates. No focal infiltrates are identified. No pleural effusions are identified. Cardiac size is normal. The saeid, mediastinum, skeletal structures are unremarkable. Impression: The distal tip of the nasogastric tube is in the abdomen as described. The interstitium as described, hypoventilation versus interstitial infiltrates. Electronically Signed by Demetrius Schwab MD 06/29/2019 02:06 P
[2019-06-29] MEDS ORDERED: LORazepam 2 MG/ML VIAL (J2060) IV PRN (14:45)
[2019-06-29] MEDS ORDERED: IPRATROPIUM 0.5MG/ALBUTEROL 2.5MG INH SOL UD 3ML (DUONEB)(J7620) NEB PRN (14:45)
[2019-06-29 14:57] LABS: INR 1.1; PARTIAL THROMBOPLASTIN TIME 27.2 SECONDS (25.0-38.4)
[2019-06-29 15:00] LABS: LIPASE 53 U/L (73-393); MAGNESIUM LEVEL 1.4 MG/DL (1.8-2.4)
[2019-06-29] MEDS ORDERED: PILL CUTTER 1 EACH XX PRN (15:00)
--- NOTE | 2019-06-29 15:10 | HPEPDOC ---
[facility] Medical History & Physical Date of Admission Jun 29, 2019 Date of Service: Jun 29, 2019 Attending Physician: ARIELLE OTRRE MD History and Physical CHIEF COMPLAINT: Visual hallucinations HISTORY OF PRESENT ILLNESS: [48-year-old male with past history of Parkinson's disease and alcohol abuse is brought from home for visual hallucinations. Patient drank excessive amount of vodka during Super Bowl, has not had any alcohol since then as his family was actively preventing him from drinking. Lonnie arzola started having withdrawal symptoms 24-48 hours ago, started having visual hallucinations yesterday which were sent today to the point where he thought it was a body in the room and called EMS. Patient is resting in bed, anxious with tremors, alert and oriented 2, unable to provide any meaningful history, hallucinating 2 additional people in the room at this time. Information obtained from mother at bedside. After my initial visit, I was called back to the patient's room by RN, patient unconscious, clammy with significant diaphoresis, likely had a seizure episode. Patient has already received 4 mg of IV Ativan. At this point, currently receiving 2 more milligrams. Based on patient's presentation, it was decided that he was unable to protect his airway and emergently intubated in the emergency department by myself and Dr. Uribe. PAST MEDICAL HISTORY: 1. Parkinson's disease. 2. Alcohol abuse. PAST SURGICAL HISTORY: 1. Polyp removal "in the throat". SOCIAL HISTORY: Smokes 1.5 packs per day, for over 30 years. Drinks excessive alcohol. Smokes marijuana FAMILY HISTORY: Father has Parkinson's disease ALLERGIES: Please see below. REVIEW OF SYSTEMS: Unable to assess HOME MEDICATIONS: Please see below. PHYSICAL EXAMINATION: VITAL SIGNS: Please see below. GENERAL: On mechanical ventilation HEENT: Size 8 ET tube 21 cm at the lip NECK: Supple CARDIOVASCULAR EXAMINATION: Tachycardic RESPIRATORY EXAMINATION: Scattered rhonchi ABDOMINAL EXAMINATION: Soft, nontender, nondistended, positive bowel sounds EXTREMITIES: Range of motion intact SKIN: Clammy and diaphoretic NEUROLOGICAL EXAMINATION: Sedated on mechanical ventilation PSYCHIATRIC EXAMINATION: Sedated LABORATORY DATA: See below. IMAGING: Post intubation chest x-ray shows that ET tube likely needs to be p ushed down MICROBIOLOGY: Please see below. ASSESSMENT: 48-year-old male with past medical history of Parkinson's disease and alcohol abuse is admitted for delirium tremens. PLAN: 1. Delirium tremens. Has received 8 mg of IV Ativan total, had seizure activity in the ED, emergently intubated due to inability to protect his airway, sedation with propofol, received banana bag in the ED, continue IV fluids, thiamine, folic acid and multivitamins. Cup Setter Lockstitch on board for vent management. 2. Parkinson's disease. Hold pramipexole, continue Artane 3. Active smoker. NicoDerm 4. Hypokalemia. Likely due to alcohol and medication, started on Lasix one month ago, hold Lasix for now, we'll supplement by mouth and IV. Magnesium being supplemented as well. DVT prophylaxis: Lovenox GI prophylaxis: Protonix Vital Signs Vital Signs Date Time Temp Pulse Resp B/P (MAP) Pulse Ox O2 Delivery O2 Flow Rate FiO2 06/29/19 13:39 99.9 06/29/19 09:31 90 146/83 06/29/19 08:37 18 92 Laboratory Data Labs 24H Laboratory Tests 2 06/29/19 09:24: Immature Granulocyte % (Auto) 0.3, Neutrophils (%) (Auto) 67.0H, Lymphocytes (%) (Auto) 21.7L, Monocytes (%) (Auto) 9.2H, Eosinophils (%) (Auto) 1.5, Basophils (%) (Auto) 0.3, Neutrophils # (Auto) 4.5, Lymphocytes # (Auto) 1.5, Monocytes # (Auto) 0.6, Eosinophils # (Auto) 0.1, Basophils # (Auto) 0.0, Nucleated Red Blood Cells % (auto) 0.0, Blood Gas Bicarbonate Standard 24.5, Venous Blood pH 7.428, Venous Blood Partial Pressure CO2 37.4L, Venous Blood Partial Pressure O2 75.0H, Venous Blood Total Carbon Dioxide 25.3, Venous Blood HCO3 24.2, Venous Blood Oxygen Saturation 95.5H, Venous Blood Base Excess 0.1, Anion Gap 8, Glome rular Filtration Rate > 60.0, Lactic Acid Level 1.5, Calcium Level 6.7L, Total Bilirubin 0.8, Direct Bilirubin 0.3H, Aspartate Amino Transf (AST/SGOT) 186H, Alanine Aminotransferase (ALT/SGPT) 193H, Alkaline Phosphatase 45, Ammonia 18, Total Creatine Kinase 1105H, Creatine Kinase MB 16.3H, Creatine Kinase MB Relative Index 1.48, Troponin I < 0.02, Total Protein 6.2L, Albumin 2.9L, Albumin/Globulin Ratio 0.88L, Thyroid Stimulating Hormone (TSH) 2.670, Salicylates Level < 1.7L, Urine Opiates Screen NEGATIVE, Urine Methadone Screen NEGATIVE, Acetaminophen Level < 2.0L, Urine Barbiturates Screen NEGATIVE, Urine Phencyclidine Screen NEGATIVE, Urine Amphetamines Screen NEGATIVE, Urine Benzodiazepines Screen POSITIVEH, Urine Cocaine Metabolite Screen NEGATIVE, Urine Cannabinoids Screen NEGATIVE, Ethyl Alcohol Level 0.003 06/29/19 09:27: Bedside Glucose (Misc Panel) 105 CBC/BMP Laboratory Tests 06/29/19 09:24 Home Medications Scheduled Alprazolam (Xanax) 0.25 Mg Tablet, 0.25 MG PO DAILY Bupropion Hcl (Bupropion Xl) 150 Mg Tab.er.24h, 150 MG PO DAILY Furosemide (Furosemide) 40 Mg Tablet, 40 MG PO DAILY Pramipexole Di-HCl (Pramipexole ER) 1.5 Mg Tab, 1.5 MG PO TID Trihexyphenidyl HCl (Trihexyphenidyl HCl) 2 Mg Tab, 2 MG PO TID Scheduled PRN Alprazolam (Alprazolam) 0.25 Mg Tablet, 0.25 MG PO BID PRN for ANXIETY Allergies Coded Allergies: No Known Allergies (Unverified , 11/29/16) A-FIB/CHADSVASC A-FIB History Current/History of A-Fib/PAF?: No ARIELLE TORRE MD Jun 29, 2019 15:10
--- NOTE | 2019-06-29 15:22 | ECGEPIP ---
[facility] - ED Test Date: 2019-06-29 Pat Name: INNA ROMERO Department: Room: - Gender: Male Head Bookkeeper: violet : 1970 Requested By: Samantha Chambers Order Number: [id number] Reading MD: Shar Anderson Measurements Intervals [place] Rate: 84 P: 21 FL: 197 QRS: -43 QRSD: 109 T: 9 QT: 375 QTc: 444 Interpretive Statements SINUS RHYTHM WITH FREQUENT VENTRICULAR PREMATURE COMPLEXES MARKED LEFT AXIS DEVIATION Baseline artifact Comparison tracing not on file Electronically Signed on 06-29-2019 15:22:33 EST by Shar Anderson
[2019-06-29 15:33] LABS: ABG HCO3 27.1 MEQ/L (22.0-26.0); ABG O2 SATURATION 94.7 % (95.0-99.0); ABG PARTIAL PRESSURE CO2 44.1 mmHg (35.0-45.0); ABG PARTIAL PRESSURE O2 74.8 mmHg (75.0-100.0); ABG STANDARD HCO3 26.2 MEQ/L (22.0-26.0); ABG TOTAL CO2 28.5 MEQ/L (22.0-29.0); ABG pH (ARTERIAL) 7.407 UNITS (7.350-7.450)
[2019-06-29] MEDS: MAG SULF 1GM/100ML (MAG RUN) 1 GM in IV 1 EA IV SCH ×3 (16:00→22:53)
[2019-06-29 16:04] LABS: BLOOD UREA NITROGEN 9 MG/DL (7-18); CARBON DIOXIDE LEVEL 28 MEQ/L (21-32); CHLORIDE LEVEL 105 MEQ/L (98-107); CREATININE FOR GFR 0.77 MG/DL (0.70-1.30); GLOMERULAR FILTRATION RATE > 60.0 (>60); GLUCOSE, FASTING 98 MG/DL (70-100); POTASSIUM SERUM 3.3 MEQ/L (3.5-5.1); SODIUM LEVEL 139 MEQ/L (136-145)
[2019-06-29] MEDS ORDERED: ETOMIDATE INJ 20MG/10ML VIAL ONE (17:00)
[2019-06-29] MEDS ORDERED: SUCCINYLCHOLINE 100 MG/5 ML SYRINGE (J0330) ONE (17:00)
[2019-06-29] MEDS: D5W/0.45% SODIUM CHLORIDE 1,000 ML IV SCH (17:16)
[2019-06-29] MEDS: PANTOPRAZOLE 40MG INJ (PROTONIX) (C9113) IV SCH (17:19)
[2019-06-29] MEDS: NICOTINE 21MG/24HR 1 EA TRANSDERMAL TD SCH (17:19)
[2019-06-29] MEDS: ENOXAPARIN 40 MG/0.4 ML SYRINGE (J1650) SC SCH (17:22)
[2019-06-29] MEDS: KCL 10MEQ/100ML SWI (KRUN) 10 MEQ in IV 1 EA IV SCH ×4 (17:24→21:46)
[2019-06-29] MEDS: MULTIVITAMIN/MINERALS LIQUID 15ML ORAL SYRINGE NG SCH (17:30)
[2019-06-29] MEDS: FOLIC ACID 1 MG TAB NG SCH (17:30)
[2019-06-29] MEDS: THIAMINE 100 MG TAB NG SCH (17:31)
[2019-06-29] MEDS: PRAMIPEXOLE 1 MG TAB PO SCH ×2 (17:32→21:47)
--- NOTE | 2019-06-29 17:33 | CR ---
DATE OF CONSULTATION: 06/29/2019 HISTORY OF PRESENT ILLNESS: Elio Rodriguez is a 48-year-old male with a history of Parkinson's disease who presented to the ED this morning after being found down at home. At the time of this history and physical the patient is currently intubated so the family provided the history. Reportedly the patient lives with his brother and has been drinking excessively recently and reportedly not taking his medications. In addition he has been having auditory and visual hallucinations that his brother has noticed have worsened over the past couple of days. Last night the patient had another hallucination to the point where his brother needed to sit with him to make sure that he would be okay and not try to leave the house. Recently as of a few days ago the patient was drinking heavily from the [employer] party that he had and the brother notes that he can drink one handle of liquor over about 2-3 days. This morning the patient pressed his life alert button and the neighbors came over to his house and found the patient on the floor in his living room unresponsive. EMS was activated and the patient was brought to the emergency room. In the emergency room the patient was able to be interviewed by hospitalist Dr. Fregoso, after which he suffered a seizure in which he most likely bit his tongue and had to be intubated for airway protection. He did receive about 6 doses of Ativan 1 mg for seizure cessation and he was placed on Propofol for sedation. The ICU team was called to manage the patient's vent. Of note, the patient recently had medication change with the addition of bupropion about a week ago for his depression. PAST MEDICAL HISTORY: Significant for Parkinson's disease diagnosed at the age of 43, heavy alcohol abuse, lower extremity venous stasis and edema, major depressive disorder and anxiety disorder. PAST SURGICAL HISTORY: Unknown. FAMILY HISTORY: Father had Parkinson's disease SOCIAL HISTORY: The patient as stated above is a heavy drinker and drinks about 1 handle of liquor every 2-3 days. He also drinks beer pretty heavily. He smokes 1 1/2 packs of cigarettes per day. He lives at home in [place] with his brother. He does not work. He had to retire due to the severity of his Parkinson's disease. He had a girlfriend who from heroin overdose. He has no known history of illegal drugs other than marijuana. ALLERGIES: No known allergies. HOME MEDICATIONS: Xanax 0.25 mg by mouth twice a day as needed, bupropion 150 mg tablet ER by mouth daily, Lasix 40 mg by mouth daily, Pramipexole ER 1.5 mg by mouth three times a day, trihexyphenidyl 2 mg tablets by mouth three times a day. PHYSICAL EXAMINATION: VITALS: Temperature 99.9, pulse 90, respiratory rate 18, blood pressure 146/83, the patient is on packed red blood cells with 35% Fi02 satting at 92%. GENERALLY: The patient is laying in bed. He is intubated. He is sedated. He is not following any commands. HEENT: Unable to perform ocular movement exam as the patient is sedated. Mucous membranes are moist. There is a less than 1 cm laceration on his tongue. He does have blood draining from his OT tube and he has very poor dentition. NECK: Supple with no thyromegaly and no lymphadenopathy. CHEST: There is even chest rise. LUNGS: Essentially clear to auscultation bilaterally with possibly some crackles at the bases of his lungs bilaterally. Otherwise no other adventitious breath sounds. HEART: Regular rate and rhythm with no murmurs, rubs or gallops, normal S1 and normal S2. ABDOMEN: Soft and nontender with no organomegaly and no masses. Positive bowel sounds. EXTREMITIES: He has 1+ pitting edema in his lower extremities bilaterally with evidence of chronic venous stasis in his lower extremities. He has no swelling in his upper extremities. SKIN: He has no obvious rashes. LYMPHATICS: He has no enlarged lymph nodes in his posterior auricular, cervical, supraclavicular or femoral regions. PSYCHE: Unable to assess due to the patient's intubation. NEURO: Unable to assess due to the patient being sedated. INVESTIGATIONS: A CBC demonstrates white blood cell count of 6.8, hemoglobin 13.9, hematocrit 42.3 and a platelet count of 163. Chemistries demonstrate a sodium of 143, potassium 2.6, chloride 111, bicarbonate 24, BUN 9, and creatinine 0.64 with an estimated GFR of greater than 60%. His lactic acid was found to be 1.5, Phosphorus was found to be 3, magnesium 1.4, total bilirubin 0.8, direct bilirubin 0.3, AST 186, ALT 193, alkaline phos 45, ammonia 18, total creatinine kinase 1,105 and albumin was 2.9, blood gas that was drawn prior to intubation pH 7.428, PcO2 37.4, Po2 75, with a base excess 0.1, PT was found to be 14, INR 1.1 and a PTT of 27.2. On toxicology he was found only to be positive for benzodiazepines and alcohol level was 0.003. IMAGING: The patient did have a head CT in the ED and was found to have no acute hemorrhage, no edema, mass effect or midline shift. There is a cortical stripe that is unremarkable. The ventricles are normal size and the visualized paraspinal sinuses and mastoid air cells are clear which was essentially called a negative CT scan of the brain. In addition the patient had a chest x-ray which was reviewed by myself and after intubation and demonstrates an NG tube with the tip terminating satisfactory in the abdomen. The distal tip of the tube is excluded at the inferior film margin. The interstitium of the lung penaloza was diffusely coarsened and indistinct. This could represent hypoventilation or could represent interstitial infiltrates. There are no focal infiltrates and no pleural effusions. Cardiac size was normal. The saeid, mediastinum and skeletal structures are all unremarkable. And overall the impression is the distal tip of the NG tube is in the abdomen as described and possible hyperventilation versus interstitial infiltrates. ASSESSMENT: This is a 48-year-old male with a history of Parkinson's disease who was admitted with several days of auditory and visual hallucinations who had what is likely an alcohol withdrawal seizure in the emergency room and was intubated and now is sedated. Critical care team has consulted for the management of his vent. PLAN: 1. Alcohol abuse with withdrawal seizures requiring intubation for airway protection: At this point and time the patient is on PRVC on the vent and he is somewhat overbreathing the vent. His vitals are stable. We have him on the CIWA protocol for alcohol withdrawal and he is sedated with propofol currently at 30 mcg. We have written for him to have some Ativan 0.5 mg IV every 15 minutes as needed for anxiety and agitation. In addition he has been put on a multivitamin, thiamine and folic acid for his heavy alcohol consumption. He has already gotten one banana bag in the ED. We would recommend continuation of this supplementation for the time being. It is likely that he bit his tongue while he was seizing in the ED therefore we will monitor the amount of blood in his orotracheal tube. We will continue propofol and as needed Ativan for now for the patient's sedation with a titration of the RASS score of -1 and a Blake score of 1. Continue with daily ABGs and CXR while intubated and continue vent bundle care. 2. Transaminitis. The patient AST and ALT were acutely elevated. This is likely secondary to alcoholic hepatitis versus acute alcohol intoxication. We have ordered ammonia which was within normal limits, however he will need to be worked up for other etiologies of this transaminitis such as hepatitis. A hepatitis panel has been drawn. His Maddrey discrimination function score is 10.9 indicating good prognosis from his liver injury and no need for steroids. 3. Hypokalemia The patient's potassium was found to be 2.6 on admission. This has since been replaced however magnesium was not replaced so this has been added. I have ordered a BMP to redrawn at this time as he has already gotten 20 mEq of potassium. We recommend electrolyte repletion as the patient has been on Lasix without any potassium supplementation. In addition we have started the patient on fluids of D51/2 normal saline at 100 mL per hour. 4. Parkinson's disease. We have continued his Parkinson's medications at this time. Trihexyphenidyl and pramipexole and would not recommend restarting his Wellbutrin as this lowers his seizure threshold and could be contributing to his alcoholic withdrawal seizures. 5. Elevated CK, likely secondary to his seizure likely to improve with fluid resuscitation. We will recheck his CK in the morning. 6. DVT prophylaxis. Lovenox. CODE STATUS: The patient is a full code. Total critical care time is estimated at 50 minutes. IKenna, have conducted an independent examination and history of the patient and agree with the plan as detailed above. CARMINAD
[2019-06-29] MEDS: propofoL 1,000 MG in IV 1 EA IV SCH ×2 (18:33→23:29)
[2019-06-29] MEDS: TRIHEXYPHENIDYL 2 MG TAB PO SCH ×2 (21:00→21:48)
[2019-06-29] MEDS: CHLORHEXIDINE GLUCONATE 0.12 % 15ML UDC (PERIDEX ORAL RINSE) MT SCH (21:46)
[2019-06-30] VITALS (37 sets, daily range): BP systolic 91–118; BP diastolic 51–73; O2SAT 97–99
[2019-06-30] MEDS: MAG SULF 1GM/100ML (MAG RUN) 1 GM in IV 1 EA IV SCH (00:08)
[2019-06-30] MEDS: propofoL 1,000 MG in IV 1 EA IV SCH ×5 (04:42→20:41)
[2019-06-30 05:13] LABS: HEMATOCRIT 38.7 % (42.0-52.0); HEMOGLOBIN 12.9 g/dl (13.5-17.5); MEAN CORPUSCULAR HEMOGLOBIN 34.8 pg (27.0-33.0); MEAN CORPUSCULAR HGB CONC 33.3 g/dl (32.0-36.5); MEAN CORPUSCULAR VOLUME 104.3 fl (80.0-96.0); PLATELET COUNT, AUTOMATED 146 10^3/uL (150-450); RED BLOOD COUNT 3.71 10^6/uL (4.30-6.10); WHITE BLOOD COUNT 7.6 10^3/uL (4.0-10.0)
[2019-06-30 05:27] LABS: ABG BASE EXCESS 1.1 (-2.0-2.0); ABG HCO3 25.2 MEQ/L (22.0-26.0); ABG O2 SATURATION 97.6 % (95.0-99.0); ABG PARTIAL PRESSURE CO2 38.5 mmHg (35.0-45.0); ABG PARTIAL PRESSURE O2 94.7 mmHg (75.0-100.0); ABG STANDARD HCO3 25.4 MEQ/L (22.0-26.0); ABG TOTAL CO2 26.4 MEQ/L (22.0-29.0); ABG pH (ARTERIAL) 7.434 UNITS (7.350-7.450)
[2019-06-30 05:52] LABS: ALBUMIN 2.9 GM/DL (3.2-5.2); ALT/SGPT 233 U/L (12-78); BILIRUBIN,TOTAL 0.8 MG/DL (0.2-1.0); BLOOD UREA NITROGEN 6 MG/DL (7-18); CALCIUM LEVEL 7.8 MG/DL (8.5-10.1); CARBON DIOXIDE LEVEL 28 MEQ/L (21-32); CHLORIDE LEVEL 107 MEQ/L (98-107); CPK CREATINE PHOSPHOKINASE 1031 U/L (39-308); CREATININE FOR GFR 0.78 MG/DL (0.70-1.30); GLOMERULAR FILTRATION RATE > 60.0 (>60); GLUCOSE, FASTING 108 MG/DL (70-100); MAGNESIUM LEVEL 2.4 MG/DL (1.8-2.4); POTASSIUM SERUM 3.2 MEQ/L (3.5-5.1); SODIUM LEVEL 141 MEQ/L (136-145); TOTAL PROTEIN 6.7 GM/DL (6.4-8.2)
[2019-06-30] MEDS: KCL 10MEQ/100ML SWI (KRUN) 10 MEQ in IV 1 EA IV SCH ×6 (07:28→13:22)
[2019-06-30] MEDS: D5W/0.45% SODIUM CHLORIDE 1,000 ML IV SCH ×3 (07:28→19:08)
--- NOTE | 2019-06-30 08:17 | REP ---
Portable chest, 07:50 a.m., single AP view with the patient semi upright: Comparison is 06/29/2019. A coarsened interstitium on the comparison study has improved. However, there are now bibasilar infiltrates and possible left pleural effusion. There is an endotracheal tube terminating satisfactory the trachea above the rogelio in satisfactory location. There is a nasogastric tube terminating satisfactorily in the upper abdomen, the precise location of the distal tip is excluded at the inferior film margin. Impression: Bibasilar infiltrates. The previous interstitial coarsening has improved. Electronically Signed by Demetrius Schwab MD 06/30/2019 08:09 A
[2019-06-30] MEDS: ENOXAPARIN 40 MG/0.4 ML SYRINGE (J1650) SC SCH (08:51)
[2019-06-30] MEDS: CHLORHEXIDINE GLUCONATE 0.12 % 15ML UDC (PERIDEX ORAL RINSE) MT SCH ×2 (08:52→20:16)
[2019-06-30] MEDS: THIAMINE 100 MG TAB NG SCH (08:52)
[2019-06-30] MEDS: MULTIVITAMIN/MINERALS LIQUID 15ML ORAL SYRINGE NG SCH (08:52)
[2019-06-30] MEDS: PRAMIPEXOLE 1 MG TAB PO SCH ×3 (08:52→20:06)
[2019-06-30] MEDS: TRIHEXYPHENIDYL 2 MG TAB PO SCH ×3 (08:53→20:06)
[2019-06-30] MEDS: FOLIC ACID 1 MG TAB NG SCH (08:53)
[2019-06-30] MEDS: NICOTINE 21MG/24HR 1 EA TRANSDERMAL TD SCH (09:07)
[2019-06-30] MEDS ORDERED: MIDAZOLAM INJ 2 MG/2 ML VIAL (J2250) IV PRN (10:00)
[2019-06-30] MEDS: OXAZEPAM 10 MG CAP PO SCH ×3 (10:09→20:06)
--- NOTE | 2019-06-30 10:52 | IPN ---
DATE: 06/30/2019 SUBJECTIVE: The patient did well on the ventilator overnight. He had no issues and nursing reports that he has had a lot of secretions of copious contreras colored mucus. There was no need for any PRN benzodiazepines overnight. He tolerated the propofol well. He continued to get fluids overnight and his urine output has been sufficient. His end-tidal CO2 has been monitored and has been consistently below 40 and no other issues reported by nursing this morning. OBJECTIVE: VITALS: Temperature 97.9, pulse 65, respiratory rate 17, blood pressure 115/67, with a MAP of 83, pulse oximetry is 97% on 40% FiO2 on the ventilator. INTAKE AND OUTPUT: He had a negative fluid balance of 450 mL. In the past 24 hours he has had total intake of about 3 liters and an output of about 2 liters. His urine is 0.3 mg/kg/hour. GENERAL: The patient is laying in bed. He is sedated. He is seen on sedation vacation this morning. He has some pupillary response and he has a faint tremor in his hands. HEENT: Unable to perform ocular movement exam as the patient is sedated. Mucous membranes are moist. He does have some scant blood coming out of his OT tube. He does have poor dentition and the 1 cm laceration on his tongue is stable. NECK: Supple with no thyromegaly and no lymphadenopathy. CHEST: There is even chest rise. LUNGS: He has some faint rhonchi in the right and middle and lower lobes with no other adventitious breath sounds appreciated. HEART: Regular rate and rhythm with no murmurs, rubs or gallops, normal S1 and normal S2. ABDOMEN: Soft and nontender with no organomegaly and no masses. He has positive bowel sounds. EXTREMITIES: He has 1+ pitting edema in his lower extremities bilaterally with evidence of chronic venous stasis in his lower extremities. He has no swelling in his upper extremities. SKIN: He has no obvious rashes, lumps or bumps. LYMPHATICS: He has no enlarged lymph nodes in his posterior auricular, cervical, supraclavicular or femoral regions. PSYCH: Unable to assess due to the patient's intubation. NEURO: He has a tremor at baseline. Also, unable to assess due to the patient being sedated; however, he does have pupillary response on sedation vacation. LABORATORIES: CBC this morning demonstrates a white blood cell count of 7.6, hemoglobin 12.9, hematocrit 38.7 and a platelet count is 146. Chemistries demonstrate a sodium of 141, potassium 3.2, chloride 107, bicarbonate 24, BUN 6, and creatinine 0.78. His calcium is 7.8. His AST went from 186 to 212, ALT went from 193 to 233, his total creatinine kinase went from 1105 to 1031. Otherwise, he had a blood gas drawn this morning with pH 7.434, pCO2 of 38.5, pO2 of 94.7 and a base excess of 1.1. Hepatitis panels are still pending. He did have a chest x-ray done this morning which was reviewed by myself and demonstrates scattered infiltrates the comparison study has been improved, however there are now bibasilar infiltrates and possible left pleural effusion. There is an endotracheal tube terminating satisfactory at the trachea above the rogelio in satisfactory location. There is an NG tuber terminating satisfactory in the upper abdomen. The precise location of the distal tip is excluded in the inferior margin. Impression bibasilar infiltrates and the previous interstitial coarsening has improved. ASSESSMENT: This is a 48-year-old male with a history of Parkinson's disease who was admitted with several days of auditory and visual hallucinations who had what is likely an alcohol withdrawal seizure in the emergency room and was intubated and now sedated. Critical care team has been consulted for the management of his vent. PLAN: 1. Alcohol abuse with withdrawal seizures requiring intubation for airway protection. The patient is on the CIWA protocol and we have started him on Serax in anticipation for his extubation. He has not yet been intubated for a full 24 hours. We continued him on Ativan 0.5 mg every 15 minutes as needed for anxiety and agitation. He is on multivitamin, thiamine, and folic acid for his heavy alcohol consumption. The patient has been started on IV Levaquin for possible aspiration pneumonia, given the CXR findings of possible increased infiltrates today compared to yesterday. 2. Transaminitis. His AST and ALT slightly increased this morning. He continues on fluids and we are waiting for a hepatitis panel to return. Again, his Maddrey's discrimination function score is 10.9 indicating a good prognosis from his liver injury. 3. Metabolic encephalopathy. His potassium today is 3.2. The primary team has replaced this with six IV potassium runs. We should check a BMP this afternoon to assess for repletion as well as check magnesium this afternoon. He continues on D5 1/2 normal saline at 100 mL per hour for his elevated CK. Caution with fluid resuscitation as he was on Lasix at home. He may benefit from a one time dose of IV Lasix at some point today if he appears to be fluid overloaded. 4. Parkinson's disease. We have continued all of his Parkinson's medications including trihexyphenidyl and pramipexole, but holding Wellbutrin as this lowers the seizure threshold. 5. Elevated CK, likely secondary to his seizure. Will likely improve with fluid resuscitation. 6. Deep vein thrombosis (DVT) prophylaxis. Lovenox. CODE STATUS: The patient is a FULL CODE. Total critical care time is estimated at 33 minutes. I was physically present at the bedside for the entire encounter. I agree with the above assessment and plan . KASSIE
[2019-06-30 11:20] LABS: HEPATITIS A ANTIBODY IGM NEGATIVE (NEGATIVE); HEPATITIS B CORE ANTIBODY IGM NEGATIVE (NEGATIVE); HEPATITIS B SURFACE ANTIGEN NEGATIVE (NEGATIVE); HEPATITIS C VIRUS ABY INDEX 0.1 INDEX (<0.8)
[2019-06-30] MEDS: LevoFLOXacin IV 750 MG in IV 1 EA IV SCH (11:24)
[2019-06-30] MEDS: PANTOPRAZOLE 40MG INJ (PROTONIX) (C9113) IV SCH (14:53)
--- NOTE | 2019-06-30 18:48 | IPNPDOC ---
Date Seen The patient was seen on 06/30/19. Progress Note HISTORY OF PRESENT ILLNESS: [48-year-old male with past history of Parkinson's disease and alcohol abuse is brought from home for visual hallucinations. Patient drank excessive amount of vodka during [employer], has not had any alcohol since then as his family was actively preventing him from drinking. Patient started having withdrawal symptoms 24-48 hours ago, started having visual hallucinations yesterday which were sent today to the point where he thought it was a body in the room and called EMS. Patient is resting in bed, anxious with tremors, alert and oriented 2, unable to provide any meaningful history, hallucinating 2 additional people in the room at this time. Information obtained from mother at bedside. After my initial visit, I was called back to the patient's room by RN, patient unconscious, clammy with significant diaphoresis, likely had a seizure episode. Patient has already received 4 mg of IV Ativan. At this point, currently receiving 2 more milligrams. Based on patient's presentation, it was decided that he was unable to protect his airway and emergently intubated in the emergency department by myself and Dr. Uribe. 06/30/19 Patient seen in the morning, intubated and sedated, no acute events overnight, plan for sedation, medication and possible spontaneous breathing trial later today. PHYSICAL EXAMINATION: VITAL SIGNS: Please see below. GENERAL: On mechanical ventilation HEENT: Size 8 ET tube 23 cm at the lip NECK: Supple CARDIOVASCULAR EXAMINATION: S1, S2, no murmurs RESPIRATORY EXAMINATION: Scattered rhonchi ABDOMINAL EXAMINATION: Soft, nontender, nondistended, positive bowel sounds EXTREMITIES: Trace edema SKIN: No rash NEUROLOGICAL EXAMINATION: Sedated on mechanical ventilation PSYCHIATRIC EXAMINATION: Sedated LABORATORY DATA: See below. MICROBIOLOGY: Please see below. ASSESSMENT: 48-year-old male with past medical history of Parkinson's disease and alcohol abuse is admitted for delirium tremens. PLAN: 1. Delirium tremens. emergently intubated in the ED due to seizure activity and inability to protect his airway, remains on mechanical ventilation, sedated with propofol, plan for sedation, medication and possible spontaneous breathing trial later today, started on Serax and as needed Versed. Continue IV fluids, thiamine, folic acid and multivitamins. 2. Parkinson's disease. Continue pramipexole and Artane 3. Active smoker. Zuleymam 4. Hypokalemia. Supplemented IV DVT prophylaxis: Lovenox GI prophylaxis: Protonix VS, I&O, 24H, Fishbone Vital Signs/I&O Vital Signs Date Time Temp Pulse Resp B/P (MAP) Pulse Ox O2 Delivery O2 Flow Rate FiO2 06/30/19 18:00 75 17 104/73 (83) 95 Ventilator 40 06/30/19 16:00 99.1 I&O- Last 24 Hours up to 6 AM 06/30/19 06:00 Intake Total 2890 ml Output Total 1775 ml Balance 1115 ml Laboratory Data 24H LABS Laboratory Tests 2 06/30/19 05:01: Nucleated Red Blood Cells % (auto) 0.0, Anion Gap 6L, Glomerular Filtration Rate > 60.0, Calcium Level 7.8L, Magnesium Level 2.4, Total Bilirubin 0.8, Aspartate Amino Transf (AST/SGOT) 212H, Alanine Aminotransferase (ALT/SGPT) 233H, Alkaline Phosphatase 50, Total Creatine Kinase 1031H, Total Protein 6.7, Albumin 2.9L, Albumin/Globulin Ratio 0.76L 06/30/19 05:21: Blood Gas Bicarbonate Standard 25.4, Arterial Blood pH 7.434, Arterial Blood Partial Pressure CO2 38.5, Arterial Blood Partial Pressure O2 94.7, Arterial Blood Total CO2 26.4, Arterial Blood HCO3 25.2, Arterial Blood Base Excess 1.1, Arterial Blood Oxygen Saturation 97.6 CBC/BMP Laboratory Tests 06/30/19 05:01 Microbiology Microbiology 06/30/19 Gram Stain - Final, Resulted 06/30/19 Sputum Culture, Resulted Pending ARIELLE TORRE MD Jun 30, 2019 18:48
[2019-06-30] MEDS ORDERED: fentaNYL 100 MCG/2 ML INJECTION (J3010) IV ONE (23:00)
[2019-07-01] VITALS (22 sets, daily range): BP systolic 102–141; BP diastolic 58–76; O2SAT 95–97
[2019-07-01] MEDS: propofoL 1,000 MG in IV 1 EA IV SCH ×3 (00:19→06:45)
[2019-07-01 04:24] LABS: HEMATOCRIT 41.7 % (42.0-52.0); HEMOGLOBIN 13.3 g/dl (13.5-17.5); MEAN CORPUSCULAR HEMOGLOBIN 33.8 pg (27.0-33.0); MEAN CORPUSCULAR HGB CONC 31.9 g/dl (32.0-36.5); MEAN CORPUSCULAR VOLUME 106.1 fl (80.0-96.0); PLATELET COUNT, AUTOMATED 149 10^3/uL (150-450); RED BLOOD COUNT 3.93 10^6/uL (4.30-6.10); WHITE BLOOD COUNT 10.3 10^3/uL (4.0-10.0)
[2019-07-01 04:48] LABS: ALBUMIN 2.8 GM/DL (3.2-5.2); ALT/SGPT 188 U/L (12-78); BILIRUBIN,TOTAL 0.8 MG/DL (0.2-1.0); BLOOD UREA NITROGEN 5 MG/DL (7-18); CALCIUM LEVEL 7.8 MG/DL (8.5-10.1); CARBON DIOXIDE LEVEL 27 MEQ/L (21-32); CHLORIDE LEVEL 109 MEQ/L (98-107); CREATININE FOR GFR 0.69 MG/DL (0.70-1.30); GLOMERULAR FILTRATION RATE > 60.0 (>60); GLUCOSE, FASTING 105 MG/DL (70-100); POTASSIUM SERUM 3.5 MEQ/L (3.5-5.1); SODIUM LEVEL 141 MEQ/L (136-145); TOTAL PROTEIN 6.6 GM/DL (6.4-8.2)
[2019-07-01 05:39] LABS: ABG BASE EXCESS 0.6 (-2.0-2.0); ABG HCO3 23.7 MEQ/L (22.0-26.0); ABG O2 SATURATION 97.8 % (95.0-99.0); ABG PARTIAL PRESSURE CO2 33.4 mmHg (35.0-45.0); ABG TOTAL CO2 24.7 MEQ/L (22.0-29.0); ABG pH (ARTERIAL) 7.468 UNITS (7.350-7.450)
[2019-07-01] MEDS: D5W/0.45% SODIUM CHLORIDE 1,000 ML IV SCH (06:44)
--- NOTE | 2019-07-01 08:27 | REP ---
Clinical: Intubation. Comparison: 06/30/2019. Findings: Endotracheal tube 3 cm above the rogelio. Nasogastric tube courses below left hemidiaphragm. Stable cardiomegaly noted. Bibasilar opacities consistent with atelectasis and small pleural effusions similar to prior examination. No pneumothorax. Impression: 1. Lines and tubes in satisfactory position. 2. Cardiomegaly. 3. Bibasilar opacities and small pleural effusions similar to prior exam. Electronically Signed by Kam Castellanos MD 07/01/2019 08:17 A
[2019-07-01] MEDS ORDERED: ACETAMINOPHEN TAB 650MG DOSE (2X325MG) PO PRN (08:45)
[2019-07-01] MEDS: PRAMIPEXOLE 1 MG TAB PO SCH ×3 (09:19→20:04)
[2019-07-01] MEDS: TRIHEXYPHENIDYL 2 MG TAB PO SCH ×3 (09:19→20:04)
[2019-07-01] MEDS: FOLIC ACID 1 MG TAB NG SCH (09:19)
[2019-07-01] MEDS: CHLORHEXIDINE GLUCONATE 0.12 % 15ML UDC (PERIDEX ORAL RINSE) MT SCH (09:20)
[2019-07-01] MEDS: NICOTINE 21MG/24HR 1 EA TRANSDERMAL TD SCH (09:20)
[2019-07-01] MEDS: OXAZEPAM 10 MG CAP PO SCH ×3 (09:20→20:04)
[2019-07-01] MEDS: MULTIVITAMIN/MINERALS LIQUID 15ML ORAL SYRINGE NG SCH (09:20)
[2019-07-01] MEDS: THIAMINE 100 MG TAB NG SCH (09:20)
[2019-07-01] MEDS: ENOXAPARIN 40 MG/0.4 ML SYRINGE (J1650) SC SCH (09:21)
[2019-07-01] MEDS: KCL 10MEQ/100ML SWI (KRUN) 10 MEQ in IV 1 EA IV SCH ×4 (09:21→13:04)
--- NOTE | 2019-07-01 10:15 | IPN ---
DATE: 07/01/2019 PULMONARY CRITICAL CARE/VENT MANAGEMENT NOTE I again attended Elio Rodríguez. I have talked to Dr. Fregoso at length at the bedside as well as the nurse at the bedside. We have just lightened his sedation now. He has much less in the way of secretions today. He remains with a low grade temperature with a maximum temperature (T max) of 99.3, blood pressure 102 to 120 systolic, heart rate generally in the 60s to 70s with a sinus mechanism. Respiratory rate 18 to 24 without accessory muscle use. Intake and output midnight to midnight 4685 mL in with 3615 mL out. Chest x-ray done this morning essentially an expiratory film. There is some vascular crowding. Diaphragms are not well seen, and I cannot rule out basilar atelectasis or effusions. White blood cell count 10.3, hemoglobin 13.3, platelet count 149,000. Sodium 141, potassium (K) of 3.5, chloride 109, CO2 of 27, BUN 5, creatinine 0.69, glucose 105. Blood gas done this morning on a PRVC rate of 16, tidal volume 450, PEEP of 5, FiO2 of 40%: There is a pH of 7.468, pCO2 of 33.4, pO2 of 95. On exam, currently he is on propofol but does move his extremities to stimuli. Pupils are reactive, sclerae are clear. His parkinsonian tremor is evident. Chest is fairly clear today with only the most minimal of basilar crackles bilaterally. No other focal adventitious breath sounds are identified. Cardiac exam is generally regular. Peripheral pulses diminished but palpable. Trace edema. Abdomen is soft with active bowel sounds. No convincing organomegaly or masses. Extremities: No cyanosis or clubbing. Neurologically, he is sedate but moves extremities. IMPRESSION: 1. Respiratory failure secondary to delirium tremens. 2. Parkinsonian disease. 3. Alcohol abuse. At this point, he has much less in the way of secretions, and my hope is we will be able to achieve extubation today. We will stop his sedation and assess that in the next 30-45 minutes. We will continue his current regimen as is. I have spoken with the primary service, and they are in agreement. Will proceed as outlined above with stopping his sedation and assessing his ability to control his airway. He has had no further seizures. Will proceed as outlined above.
[2019-07-01] MEDS: LevoFLOXacin IV 750 MG in IV 1 EA IV SCH (10:33)
--- NOTE | 2019-07-01 12:00 | IPNPDOC ---
Date Seen The patient was seen on 07/01/19. Progress Note HISTORY OF PRESENT ILLNESS: [48-year-old male with past history of Parkinson's disease and alcohol abuse is brought from home for visual hallucinations. Patient drank excessive amount of vodka during Super Bowl, has not had any alcohol since then as his family was actively preventing him from drinking. Patient started having withdrawal symptoms 24-48 hours ago, started having visual hallucinations yesterday which were sent today to the point where he thought it was a body in the room and called EMS. Patient is resting in bed, anxious with tremors, alert and oriented 2, unable to provide any meaningful history, hallucinating 2 additional people in the room at this time. Information obtained from mother at bedside. After my initial visit, I was called back to the patient's room by RN, patient unconscious, clammy with significant diaphoresis, likely had a seizure episode. Patient has already received 4 mg of IV Ativan. At this point, currently receiving 2 more milligrams. Based on patient's presentation, it was decided that he was unable to protect his airway and emergently intubated in the emergency department by myself and Dr. Uribe. 06/30/19 Patient seen in the morning, intubated and sedated, no acute events overnight, plan for sedation, medication and possible spontaneous breathing trial later today. 07/01/19 Patient seen in the morning, remains sedated, intubated on mechanical ventilation, minimally responsive at this time, not moving. Sedation medication was just started, plan on spontaneous breathing trial and hopeful extubation later today. PHYSICAL EXAMINATION: VITAL SIGNS: Please see below. GENERAL: On mechanical ventilation HEENT: Size 8 ET tube 23 cm at the lip NECK: Supple CARDIOVASCULAR EXAMINATION: S1, S2, no murmurs RESPIRATORY EXAMINATION: Limited anteriorly, clear to auscultation ABDOMINAL EXAMINATION: Soft, nontender, nondistended, positive bowel sounds EXTREMITIES: Trace edema SKIN: No rash NEUROLOGICAL EXAMINATION: Sedated on mechanical ventilation PSYCHIATRIC EXAMINATION: Sedated LABORATORY DATA: See below. MICROBIOLOGY: Please see below. ASSESSMENT: 48-year-old male with past medical history of Parkinson's disease and alcohol abuse is admitted for delirium tremens. PLAN: 1. Delirium tremens. emergently intubated in the ED due to seizure activity and inability to protect his airway, remains on mechanical ventilation, sedated with propofol, currently on sedation medication, plan for spontaneous breathing trial later tod ay and hopeful extubation, continue Serax and as needed Versed. Continue IV fluids, thiamine, folic acid and multivitamins. 2. Parkinson's disease. Continue pramipexole and Artane 3. Active smoker. NicoDerm 4. Hypokalemia. Supplemented IV DVT prophylaxis: Lovenox GI prophylaxis: Protonix VS, I&O, 24H, Fishbone Vital Signs/I&O Vital Signs Date Time Temp Pulse Resp B/P (MAP) Pulse Ox O2 Delivery O2 Flow Rate FiO2 07/01/19 10:49 97 Aerosol Mask 10.0 40 07/01/19 07:43 68 22 07/01/19 05:00 117/66 (83) 07/01/19 04:00 98.6 I&O- Last 24 Hours up to 6 AM 07/01/19 06:00 Intake Total 4175 ml Output Total 3070 ml Balance 1105 ml Laboratory Data 24H LABS Laboratory Tests 2 07/01/19 04:02: Nucleated Red Blood Cells % (auto) 0.0, Anion Gap 5L, Glomerular Filtration Rate > 60.0, Calcium Level 7.8L, Total Bilirubin 0.8, Aspartate Amino Transf (AST/SGOT) 129H, Alanine Aminotransferase (ALT/SGPT) 188H, Alkaline Phosphatase 50, Total Protein 6.6, Albumin 2.8L, Albumin/Globulin Ratio 0.74L 07/01/19 05:26: Blood Gas Bicarbonate Standard 25.0, Arterial Blood pH 7.468H, Arterial Blood Partial Pressure CO2 33.4L, Arterial Blood Partial Pressure O2 95.0, Arterial Blood Total CO2 24.7, Arterial Blood HCO3 23.7, Arterial Blood Base Excess 0.6, Arterial Blood Oxygen Saturation 97.8 CBC/BMP Laboratory Tests 07/01/19 04:02 Microbiology Microbiology 06/30/19 Gram Stain - Final, Resulted 06/30/19 Sputum Culture - Preliminary, Resulted Staphylococcus Aureus ARIELLE TORRE MD Jul 01, 2019 12:00
[2019-07-01] MEDS: PANTOPRAZOLE 40MG INJ (PROTONIX) (C9113) IV SCH (15:09)
[2019-07-02] VITALS: BP 122/70
[2019-07-02 04:00] VITALS: BP 124/64
[2019-07-02 04:35] LABS: HEMATOCRIT 39.5 % (42.0-52.0); HEMOGLOBIN 13.4 g/dl (13.5-17.5); MEAN CORPUSCULAR HEMOGLOBIN 35.2 pg (27.0-33.0); MEAN CORPUSCULAR HGB CONC 33.9 g/dl (32.0-36.5); MEAN CORPUSCULAR VOLUME 103.7 fl (80.0-96.0); PLATELET COUNT, AUTOMATED 163 10^3/uL (150-450); RED BLOOD COUNT 3.81 10^6/uL (4.30-6.10); WHITE BLOOD COUNT 11.9 10^3/uL (4.0-10.0)
[2019-07-02 05:02] LABS: ALBUMIN 2.9 GM/DL (3.2-5.2); ALT/SGPT 141 U/L (12-78); BILIRUBIN,TOTAL 1.4 MG/DL (0.2-1.0); BLOOD UREA NITROGEN 6 MG/DL (7-18); CALCIUM LEVEL 8.1 MG/DL (8.5-10.1); CARBON DIOXIDE LEVEL 27 MEQ/L (21-32); CHLORIDE LEVEL 105 MEQ/L (98-107); CREATININE FOR GFR 0.73 MG/DL (0.70-1.30); GLOMERULAR FILTRATION RATE > 60.0 (>60); GLUCOSE, FASTING 89 MG/DL (70-100); POTASSIUM SERUM 3.6 MEQ/L (3.5-5.1); SODIUM LEVEL 137 MEQ/L (136-145); TOTAL PROTEIN 6.8 GM/DL (6.4-8.2)
[2019-07-02 08:00] VITALS: BP 132/78
[2019-07-02] MEDS ORDERED: POTASSIUM CHLORIDE 10 MEQ SR TABLET PO ONE (08:30)
[2019-07-02] MEDS: PRAMIPEXOLE 1 MG TAB PO SCH ×3 (09:00→21:34)
[2019-07-02] MEDS: ENOXAPARIN 40 MG/0.4 ML SYRINGE (J1650) SC SCH (09:00)
[2019-07-02] MEDS: TRIHEXYPHENIDYL 2 MG TAB PO SCH ×3 (09:00→21:35)
[2019-07-02] MEDS: FOLIC ACID 1 MG TAB NG SCH (09:01)
[2019-07-02] MEDS: FUROSEMIDE 40 MG TAB PO SCH (09:01)
[2019-07-02] MEDS: THIAMINE 100 MG TAB NG SCH (09:01)
[2019-07-02] MEDS: MULTIVITAMINS/MINERALS THERAP 1 TAB PO SCH (09:02)
[2019-07-02] MEDS: NICOTINE 21MG/24HR 1 EA TRANSDERMAL TD SCH (09:03)
[2019-07-02] MEDS: OXAZEPAM 10 MG CAP PO SCH ×3 (09:03→21:35)
[2019-07-02] MEDS: LevoFLOXacin IV 750 MG in IV 1 EA IV SCH (10:18)
[2019-07-02] MEDS: PANTOPRAZOLE 40MG INJ (PROTONIX) (C9113) IV SCH (15:33)
[2019-07-02 15:39] VITALS: BP 114/70
[2019-07-02 17:00] VITALS: BP 139/82
--- NOTE | 2019-07-02 19:37 | IPNPDOC ---
Date Seen The patient was seen on 07/02/19. Progress Note HISTORY OF PRESENT ILLNESS: [48-year-old male with past history of Parkinson's disease and alcohol abuse is brought from home for visual hallucinations. Patient drank excessive amount of vodka during [employer] Bowl, has not had any alcohol since then as his family was actively preventing him from drinking. Patient started having withdrawal symptoms 24-48 hours ago, started having visual hallucinations yesterday which were sent today to the point where he thought it was a body in the room and called EMS. Patient is resting in bed, anxious with tremors, alert and oriented 2, unable to provide any meaningful history, hallucinating 2 additional people in the room at this time. Information obtained from mother at bedside. After my initial visit, I was called back to the patient's room by RN, patient unconscious, clammy with significant diaphoresis, likely had a seizure episode. Patient has already received 4 mg of IV Ativan. At this point, currently receiving 2 more milligrams. Based on patient's presentation, it was decided that he was unable to protect his airway and emergently intubated in the emergency department by myself and Dr. Uribe. 06/30/19 Patient seen in the morning, intubated and sedated, no acute events overnight, plan for sedation, medication and possible spontaneous breathing trial later today. 07/01/19 Patient seen in the morning, remains sedated, intubated on mechanical ventilation, minimally responsive at this time, not moving. Sedation medication was just started, plan on spontaneous breathing trial and hopeful extubation later today. 07/02/19 Patient seen in the morning, comfortable in bed, extubated yesterday, significant improvement since then, tolerating diet, no complaints at this time. PHYSICAL EXAMINATION: VITAL SIGNS: Please see below. GENERAL: No distress HEENT: Moist mucous membranes NECK: Supple CARDIOVASCULAR EXAMINATION: S1, S2, no murmurs RESPIRATORY EXAMINATION: clear to auscultation ABDOMINAL EXAMINATION: Soft, nontender, nondistended, positive bowel sounds EXTREMITIES: Trace edema SKIN: No rash NEUROLOGICAL EXAMINATION: Resting tremor, no focal deficits PSYCHIATRIC EXAMINATION: Calm LABORATORY DATA: See below. MICROBIOLOGY: Please see below. ASSESSMENT: 48-year-old male with past medical history of Parkinson's disease and alcohol abuse is admitted for delirium tremens. PLAN: 1. Delirium tremens. emergently intubated in the ED due to seizure activity and inability to protect his airway, extubated yesterday, clinically doing well, continue Serax, thiamine, folic acid and multivitamins. Downgraded to MedSurg, PT/OT ordered. 2. Parkinson's disease. Continue pramipexole and Artane 3. Active smoker. NicoDerm DVT prophylaxis: Lovenox GI prophylaxis: Protonix VS, I&O, 24H, Fishbone Vital Signs/I&O Vital Signs Date Time Temp Pulse Resp B/P (MAP) Pulse Ox O2 Delivery O2 Flow Rate FiO2 07/02/19 17:00 98.2 71 18 139/82 (101) 94 Room Air 07/02/19 08:00 2.0 07/01/19 12:00 40 I&O- Last 24 Hours up to 6 AM 07/02/19 06:00 Intake Total 2706 ml Output Total 2150 ml Balance 556 ml Laboratory Data 24H LABS Laboratory Tests 2 07/02/19 04:05: Nucleated Red Blood Cells % (auto) 0.0, Anion Gap 5L, Glomerular Filtration Rate > 60.0, Calcium Level 8.1L, Total Bilirubin 1.4#H, Aspartate Amino Transf (AST/SGOT) 78H, Alanine Aminotransferase (ALT/SGPT) 141H, Alkaline Phosphatase 52, Total Protein 6.8, Albumin 2.9L, Albumin/Globulin Ratio 0.74L CBC/BMP Laboratory Tests 07/02/19 04:05 Microbiology Microbiology 06/30/19 Gram Stain - Final, Resulted 06/30/19 Sputum Culture - Preliminary, Resulted Staphylococcus Aureus ARIELLE TORRE MD Jul 02, 2019 19:37
[2019-07-02 22:00] VITALS: BP 140/78
[2019-07-03 05:59] LABS: HEMOGLOBIN 13.3 g/dl (13.5-17.5); MEAN CORPUSCULAR HEMOGLOBIN 34.5 pg (27.0-33.0); MEAN CORPUSCULAR HGB CONC 33.3 g/dl (32.0-36.5); MEAN CORPUSCULAR VOLUME 103.6 fl (80.0-96.0); PLATELET COUNT, AUTOMATED 185 10^3/uL (150-450); RED BLOOD COUNT 3.86 10^6/uL (4.30-6.10); WHITE BLOOD COUNT 10.2 10^3/uL (4.0-10.0)
[2019-07-03 06:00] VITALS: BP 131/81
[2019-07-03 06:23] LABS: ALBUMIN 2.7 GM/DL (3.2-5.2); ALT/SGPT 115 U/L (12-78); BILIRUBIN,TOTAL 0.7 MG/DL (0.2-1.0); BLOOD UREA NITROGEN 7 MG/DL (7-18); CALCIUM LEVEL 8.8 MG/DL (8.5-10.1); CARBON DIOXIDE LEVEL 26 MEQ/L (21-32); CHLORIDE LEVEL 104 MEQ/L (98-107); CREATININE FOR GFR 0.83 MG/DL (0.70-1.30); GLOMERULAR FILTRATION RATE > 60.0 (>60); GLUCOSE, FASTING 97 MG/DL (70-100); MAGNESIUM LEVEL 2.2 MG/DL (1.8-2.4); POTASSIUM SERUM 3.6 MEQ/L (3.5-5.1); SODIUM LEVEL 138 MEQ/L (136-145); TOTAL PROTEIN 7.5 GM/DL (6.4-8.2)
--- NOTE | 2019-07-03 10:09 | IPN ---
DATE: 07/03/2019 Elio is seen on the hospitalist service. Primary care provider is Dr. Ruslan Suarez. He was admitted with delirium tremens (DTs), was intubated. Was recently extubated and transferred to the floor. He has grown out methicillin sensitive Staphylococcus aureus (MSSA) from his sputum, currently on Levaquin. He feels well. Denies shortness of breath. He has some cough. He has not gotten out of bed yet to see about his exercise tolerance. He has had no seizures since admission and seems to be handling his alcohol withdrawal with no significant problems. PHYSICAL EXAMINATION: Blood pressure 131/88, pulse 58, 96.9. Alert conversant in no distress. He has a mild tremor, which reportedly he also has at baseline. HEENT: Unremarkable. Lungs with scattered rhonchi. Heart: Regular rhythm. Abdomen soft. Nontender. No peripheral edema. No asterixis. Neurological exam nonfocal. IMPRESSION: 1. Staphylococcus pulmonary infection. Possible aspiration (patient intubated after a seizure). He is currently on IV Levaquin. I will change him to IV cefazolin; quinolones increase the risk of seizure in patient's with tendency towards seizure and have a higher central nervous system side effect profiles on cephalosporins. He has isolated methicillin sensitive Staphylococcus aureus in his sputum, so we can narrow his antibiotic spectrum with cefazolin. 2. Alcoholism: He is recovering from this. He is on Serax, thiamine, multivitamin and folic acid. 3. Parkinson's: Continue his current Parkinson's treatment. Probably discharge tomorrow if stable.
[2019-07-03] MEDS: TRIHEXYPHENIDYL 2 MG TAB PO SCH ×3 (10:26→21:02)
[2019-07-03] MEDS: FUROSEMIDE 40 MG TAB PO SCH (10:27)
[2019-07-03] MEDS: FOLIC ACID 1 MG TAB NG SCH (10:27)
[2019-07-03] MEDS: MULTIVITAMINS/MINERALS THERAP 1 TAB PO SCH (10:27)
[2019-07-03] MEDS: OXAZEPAM 10 MG CAP PO SCH ×3 (10:27→21:01)
[2019-07-03] MEDS: THIAMINE 100 MG TAB NG SCH (10:27)
[2019-07-03] MEDS: ENOXAPARIN 40 MG/0.4 ML SYRINGE (J1650) SC SCH (10:28)
[2019-07-03] MEDS: NICOTINE 21MG/24HR 1 EA TRANSDERMAL TD SCH (10:28)
[2019-07-03] MEDS: PRAMIPEXOLE 1 MG TAB PO SCH ×3 (10:30→21:04)
[2019-07-03] MEDS: ceFAZolin SOD 1 GM in D5W MINI-BAG PLUS 50 ML IV SCH ×2 (10:47→18:33)
[2019-07-03 14:00] VITALS: BP 124/76
[2019-07-03] MEDS: PANTOPRAZOLE 40MG INJ (PROTONIX) (C9113) IV SCH (15:43)
[2019-07-03 22:00] VITALS: BP 123/82
[2019-07-04] MEDS: ceFAZolin SOD 1 GM in D5W MINI-BAG PLUS 50 ML IV SCH (02:32)
[2019-07-04 06:00] VITALS: BP 126/81
[2019-07-04 06:56] LABS: HEMATOCRIT 41.3 % (42.0-52.0); HEMOGLOBIN 13.6 g/dl (13.5-17.5); MEAN CORPUSCULAR HEMOGLOBIN 34.3 pg (27.0-33.0); MEAN CORPUSCULAR HGB CONC 32.9 g/dl (32.0-36.5); PLATELET COUNT, AUTOMATED 228 10^3/uL (150-450); RED BLOOD COUNT 3.97 10^6/uL (4.30-6.10); WHITE BLOOD COUNT 7.5 10^3/uL (4.0-10.0)
[2019-07-04 07:18] LABS: ALT/SGPT 125 U/L (12-78); BILIRUBIN,TOTAL 0.5 MG/DL (0.2-1.0); BLOOD UREA NITROGEN 9 MG/DL (7-18); CALCIUM LEVEL 8.7 MG/DL (8.5-10.1); CARBON DIOXIDE LEVEL 27 MEQ/L (21-32); CHLORIDE LEVEL 104 MEQ/L (98-107); GLOMERULAR FILTRATION RATE > 60.0 (>60); GLUCOSE, FASTING 99 MG/DL (70-100); POTASSIUM SERUM 3.6 MEQ/L (3.5-5.1); SODIUM LEVEL 138 MEQ/L (136-145); TOTAL PROTEIN 7.5 GM/DL (6.4-8.2)
[2019-07-04] MEDS: THIAMINE 100 MG TAB NG SCH (10:51)
[2019-07-04] MEDS: CEPHALEXIN 500 MG CAP PO SCH ×2 (10:51→20:18)
[2019-07-04] MEDS: FOLIC ACID 1 MG TAB NG SCH (10:51)
[2019-07-04] MEDS: MULTIVITAMINS/MINERALS THERAP 1 TAB PO SCH (10:51)
[2019-07-04] MEDS: TRIHEXYPHENIDYL 2 MG TAB PO SCH ×3 (10:51→20:18)
[2019-07-04] MEDS: FUROSEMIDE 40 MG TAB PO SCH (10:51)
[2019-07-04] MEDS: OXAZEPAM 15 MG CAP PO SCH ×2 (10:51→20:18)
[2019-07-04] MEDS: PRAMIPEXOLE 1 MG TAB PO SCH ×3 (10:52→20:19)
[2019-07-04] MEDS: NICOTINE 21MG/24HR 1 EA TRANSDERMAL TD SCH (10:52)
[2019-07-04] MEDS: ENOXAPARIN 40 MG/0.4 ML SYRINGE (J1650) SC SCH (10:53)
[2019-07-04] MEDS: PANTOPRAZOLE 40MG TAB (PROTONIX) PO SCH (12:36)
--- NOTE | 2019-07-04 13:40 | IPNPDOC ---
Text Note Date of Service The patient was seen on 07/04/19. NOTE Subjective: Patient is a 48-year-old male was sent to the hospital in delirium tremens after a multiple week long spell of binging alcohol. Patient says he feels ready to go home however, yesterday physical therapy was working with him and said he was not safe for discharge. His vital therapies other than had a continue working with the patient in order for him to be safe for discharge. Social workers have also been talked to the patient about trying to help him get substance abuse help for his alcoholism however, the patient seems in the pre- contemplative stage. When talking to me today, he says that he was ready to quit drinking however, he did not have a plan on how he would go about doing this. Patient does follow with a primary care and a neurologist as he was recently diagnosed with Parkinson's disease. Patient says he feels much better today and feels like his intubation due to delirium tremens was a wake-up call for him to stop drinking and to try to change his lifestyle. Review of systems General: Patient denies fevers HEENT: Patient denies headaches Cardiovascular: Patient denies chest pain Respiratory: Patient denies shortness of breath, cough GI: Patient denies abdominal pain, nausea, vomiting, diarrhea : Patient denies pain or difficulty with urination Neurological: Patient denies numbness or tingling in extremities Extremities: Patient denies swelling or pain in extremities Objective: Vitals: (see below) General: Alert and oriented male patient who was standing brushing his teeth when I walked in the room. Patient did have a tremor at rest however, patient was in no acute distress. HEENT: Normocephalic, atraumatic, moist mucous membranes. Cardiac: Regular rate and rhythm, no murmurs, normal S1, normal S2 Pulm: Clear to auscultation bilaterally. No wheezes, rhonchi, rales Abd: Nondistended, nontender to palpation, normal bowel sounds Ext: 1+ pitting edema in bilateral lower extremity venous Labs (see below) Images: No new imaging is been performed since 07/01/2019 Assessment: Patient is a 48-year-old male preventive the hospital in delirium tremens after an alcohol binge also has Parkinson's disease who appears better today however, did not pass physical therapy and is not safe for discharge. Plan 1. Staphylococcus pulmonary infection. This grew from a culture from the patient's endotracheal tube while he was intubated after a seizure. Patient was on IV cefazolin however, he is been changed to oral cephalexin 1000 mg twice a day to finish out his course of antibiotics. Patient's breathing is better the patient does not complain of any shortness of breath or coughing. 2. Alcohol use disorder. Patient was on Serax 20 mg 3 times a day. This is been changed to 15 mg twice a day we continue to taper him down so we can be discharged on a lower dose. No adverse effects have been noted for this time. Patient is also on thiamine, multivitamin, and folic acid. 3. Parkinson's disease. Continue with his outpatient Parkinson's treatment. DVT prophy: Lovenox Dispo: Pending physical therapy clearance VS,Fishbone, I+O VS, Fishbone, I+O Laboratory Tests 07/04/19 06:32 Vital Signs Date Time Temp Pulse Resp B/P (MAP) Pulse Ox O2 Delivery O2 Flow Rate FiO2 07/04/19 06:00 98.5 64 19 126/81 (96) 94 Room Air 07/02/19 08:00 2.0 07/01/19 12:00 40 I&O- Last 24 Hours up to 6 AM 07/04/19 06:00 Intake Total 1290 ml Output Total 0 ml Balance 1290 ml GME ATTESTATION GME ATTESTATION My faculty preceptor for this patient encounter was physically present during the encounter and was fully available. All aspects of the patient interview, examination, medical decision making process, and medical care plan development were reviewed and approved by the faculty preceptor. The faculty preceptor is aware and concurs with the plan as stated in the body of this note and will at test to such by his/her cosignature. ATTENDING NOTE I, Santi Rizvi, have independently examined this patient and performed my own physical exam, as well as reviewed the documentation and edited where necessary. I have discussed in detail with the resident / student the findings and plan of treatment as documented by the resident / student and edited their note. I agree with their findings and treatment plan and have edited their documentation. I will continue to follow the patient during this hospital stay. JURGEN LOMBARDI DO Jul 04, 2019 13:40 SANTI RIZVI MD Jul 04, 2019 14:47
[2019-07-04 14:00] VITALS: BP 125/80
[2019-07-04 22:00] VITALS: BP 109/61
[2019-07-05 06:00] VITALS: BP 117/69
[2019-07-05 06:23] LABS: HEMATOCRIT 39.8 % (42.0-52.0); HEMOGLOBIN 13.1 g/dl (13.5-17.5); MEAN CORPUSCULAR HEMOGLOBIN 34.1 pg (27.0-33.0); MEAN CORPUSCULAR HGB CONC 32.9 g/dl (32.0-36.5); MEAN CORPUSCULAR VOLUME 103.6 fl (80.0-96.0); PLATELET COUNT, AUTOMATED 255 10^3/uL (150-450); RED BLOOD COUNT 3.84 10^6/uL (4.30-6.10); WHITE BLOOD COUNT 7.3 10^3/uL (4.0-10.0)
[2019-07-05 06:53] LABS: ALBUMIN 2.8 GM/DL (3.2-5.2); ALT/SGPT 156 U/L (12-78); BILIRUBIN,TOTAL 0.5 MG/DL (0.2-1.0); BLOOD UREA NITROGEN 10 MG/DL (7-18); CALCIUM LEVEL 8.5 MG/DL (8.5-10.1); CARBON DIOXIDE LEVEL 28 MEQ/L (21-32); CHLORIDE LEVEL 105 MEQ/L (98-107); CREATININE FOR GFR 0.78 MG/DL (0.70-1.30); GLOMERULAR FILTRATION RATE > 60.0 (>60); GLUCOSE, FASTING 96 MG/DL (70-100); POTASSIUM SERUM 3.6 MEQ/L (3.5-5.1); SODIUM LEVEL 140 MEQ/L (136-145); TOTAL PROTEIN 7.2 GM/DL (6.4-8.2)
[2019-07-05] MEDS: FOLIC ACID 1 MG TAB PO SCH (10:03)
[2019-07-05] MEDS: CEPHALEXIN 500 MG CAP PO SCH ×2 (10:03→20:14)
[2019-07-05] MEDS: FUROSEMIDE 40 MG TAB PO SCH (10:03)
[2019-07-05] MEDS: PANTOPRAZOLE 40MG TAB (PROTONIX) PO SCH (10:03)
[2019-07-05] MEDS: TRIHEXYPHENIDYL 2 MG TAB PO SCH ×3 (10:03→20:14)
[2019-07-05] MEDS: THIAMINE 100 MG TAB PO SCH (10:04)
[2019-07-05] MEDS: OXAZEPAM 10 MG CAP PO SCH ×2 (10:04→20:14)
[2019-07-05] MEDS: MULTIVITAMINS/MINERALS THERAP 1 TAB PO SCH (10:04)
[2019-07-05] MEDS: NICOTINE 21MG/24HR 1 EA TRANSDERMAL TD SCH (10:05)
[2019-07-05] MEDS: PRAMIPEXOLE 1 MG TAB PO SCH ×3 (10:05→20:14)
[2019-07-05] MEDS: ENOXAPARIN 40 MG/0.4 ML SYRINGE (J1650) SC SCH (10:05)
--- NOTE | 2019-07-05 12:02 | IPNPDOC ---
Text Note Date of Service The patient was seen on 07/05/19. NOTE Subjective: Patient is a 48-year-old male sent to the hospital due to delirium tremens after a multiple week long spell of binging alcohol. Patient is feeling better today however, he had not cleared physical or occupational therapy. Patient says he will not be drinking once he is outpatient however, in talking with social workers they do not believe he will do this as they've tried numerous times to get him treatment for his substance use however, he continues to deny their help. Patient is still working with occupational therapy as he does have a history of Parkinson's disease and has not been safe for discharge. Patient feels otherwise well. Review of systems General: Patient denies fevers HEENT: Patient denies headaches Cardiovascular: Patient denies chest pain Respiratory: Patient denies shortness of breath, cough GI: Patient denies abdominal pain, nausea, vomiting, diarrhea : Patient denies pain or difficulty with urination Neurological: Patient denies numbness or tingling in extremities Extremities: Patient denies swelling or pain in extremities Objective: Vitals: (see below) General: Patient is an alert and oriented male patient who was laying in bed when I walked in the room. Patient was finishing up with physical therapy and was having some difficulty pushing himself up on the bed. Patient was in no acute distress. HEENT: Normocephalic, atraumatic, moist mucous membranes. Neck: No lymphadenopathy or thyromegaly Cardiac: Regular rate and rhythm, no murmurs, normal S1, normal S2 Pulm: Clear to auscultation bilaterally. No wheezes, rhonchi, rales Abd: Nondistended, nontender to palpation, normal bowel sounds Ext: No edema bilateral lower extremities Labs (see below) Images: No imaging has been performed. Assessment: Patient is a 48-year-old male who was sent to the hospital and delirium tremens after alcohol binge who also has Parkinson's disease. Patient is feeling better today however, he did not pass occupational therapy for safe discharge. Patient also had a pneumonia after intubation with methicillin sensitive Staphylococcus aureus. Plan 1. Staphylococcus pulmonary infection. This grew from patient's endotracheal tube. Patient has been switched to cephalexin oral with his last day to be tomorrow, 07/06/2019 which are complete a seven-day course of antibiotics. 2. Alcohol use disorder. Patient's Serax is been changed to 10 mg twice a day. He'll be tapered to 5 mg twice a day tomorrow and this will be discontinued. 3. Parkinson's disease. Continue outpatient Parkinson's treatment. DVT prophy: Lovenox Dispo: Pending occupational therapy clearance. VS,Fishbone, I+O VS, Fishbone, I+O Laboratory Tests 07/05/19 06:11 Vital Signs Date Time Temp Pulse Resp B/P (MAP) Pulse Ox O2 Delivery O2 Flow Rate FiO2 07/05/19 06:00 98.4 57 20 117/69 (85) 93 Room Air 07/02/19 08:00 2.0 07/01/19 12:00 40 I&O- Last 24 Hours up to 6 AM 07/05/19 06:00 Intake Total 2490 ml Output Total 1 ml Balance 2489 ml GME ATTESTATION GME ATTESTATION My faculty preceptor for this patient encounter was physically present during the encounter and was fully available. All aspects of the patient interview, examination, medical decision making process, and medical care plan development were reviewed and approved by the faculty preceptor. The faculty preceptor is aware and concurs with the plan as stated in the body of this note and will attest to such by his/her cosignature. ATTENDING NOTE I, Santi Rizvi, have independently examined this patient and performed my own physical exam, as well as reviewed the documentation and edited where necessary. I have discussed in detail with the resident / student the findings and plan of treatment as documented by the resident / student and edited their note. I agree with their findings and treatment plan and have edited their documentation. I will continue to follow the patient during this hospital stay. JURGEN LOMBARDI DO Jul 05, 2019 12:02 SANTI RIZVI MD Jul 05, 2019 12:41
[2019-07-05 22:00] VITALS: BP 133/73
[2019-07-06 06:00] VITALS: BP 117/66
[2019-07-06 08:16] LABS: HEMATOCRIT 41.9 % (42.0-52.0); HEMOGLOBIN 13.4 g/dl (13.5-17.5); MEAN CORPUSCULAR HEMOGLOBIN 34.1 pg (27.0-33.0); MEAN CORPUSCULAR VOLUME 106.6 fl (80.0-96.0); PLATELET COUNT, AUTOMATED 267 10^3/uL (150-450); RED BLOOD COUNT 3.93 10^6/uL (4.30-6.10)
[2019-07-06 08:40] LABS: BLOOD UREA NITROGEN 10 MG/DL (7-18); CALCIUM LEVEL 8.3 MG/DL (8.5-10.1); CARBON DIOXIDE LEVEL 21 MEQ/L (21-32); CHLORIDE LEVEL 109 MEQ/L (98-107); CREATININE FOR GFR 0.82 MG/DL (0.70-1.30); GLOMERULAR FILTRATION RATE > 60.0 (>60); GLUCOSE, FASTING 109 MG/DL (70-100); POTASSIUM SERUM 3.8 MEQ/L (3.5-5.1); SODIUM LEVEL 139 MEQ/L (136-145)
[2019-07-06] MEDS: NICOTINE 21MG/24HR 1 EA TRANSDERMAL TD SCH (08:49)
[2019-07-06] MEDS: CEPHALEXIN 500 MG CAP PO SCH (08:50)
[2019-07-06] MEDS: THIAMINE 100 MG TAB PO SCH (08:50)
[2019-07-06] MEDS: FOLIC ACID 1 MG TAB PO SCH (08:50)
[2019-07-06] MEDS: TRIHEXYPHENIDYL 2 MG TAB PO SCH (08:50)
[2019-07-06] MEDS: PRAMIPEXOLE 1 MG TAB PO SCH (08:50)
[2019-07-06] MEDS: ENOXAPARIN 40 MG/0.4 ML SYRINGE (J1650) SC SCH (08:50)
[2019-07-06] MEDS: MULTIVITAMINS/MINERALS THERAP 1 TAB PO SCH (08:51)
[2019-07-06] MEDS: FUROSEMIDE 40 MG TAB PO SCH (08:51)
[2019-07-06] MEDS: PANTOPRAZOLE 40MG TAB (PROTONIX) PO SCH (08:51)
[2019-07-06] MEDS ORDERED: OXAZEPAM 10 MG CAP PO ONE (09:00)
[2019-07-06] MEDS ORDERED: CEPH500C PO (11:10)
--- NOTE | 2019-07-06 11:23 | DS.PDOC ---
Discharge Summary General Date of Admission Jun 29, 2019 at 14:26 Date of Discharge 07/06/2019 Primary Care Physician: BRIDGER BECKER MD [facility] Attending Physician: SANTI VALENZUELA MD Specialist/Consultants Involve: Hermes Clement Discharge Summary PROCEDURES PERFORMED DURING STAY: Rapid sequence intubation. ADMITTING/DISCHARGE DIAGNOSES: 1. Delirium tremens 2. MSSA pulmonary infection 3. Alcohol use disorder 4. Parkinson's disease COMPLICATIONS/CHIEF COMPLAINT: Visual hallucinations HISTORY OF PRESENT ILLNESS/HOSPITAL COURSE: Issue is a 48-year-old male who presented to the hospital on 06/29/2019 with a complaint of visual hallucinations. He had been drinking excessive amount of alcohol over the past few weeks culminating with a large binge of vodka on 06/25/2019 while watching the [employer]. Patient had not had anything to drink since 06/25/2019 and began to have alcohol withdrawal symptoms about 24-48 hours prior to presentation. Patient was starting to hallucinate on 06/29/2019 where he believes he saw a body in his house and called the ambulance. The ambulance brought into the hospital. Upon admission to the hospital, patient began to have seizures and was unable to protect his airway and was intubated. Patient was intubated for about 48 hours before being debated on hospital course day 3. Patient continued to improve. Patient had a culture grow from his endotracheal tube that was positive for methicillin sensitive Staphylococcus aureus. Patient was started on treatment with Ancef. Patient had been on le vofloxacin prior to this. Patient was transitioned to oral cephalexin prior to discharge. Patient did not initially passed physical therapy and his discharge was delayed because of this. Patient also did not pass occupational therapy and initially was also delayed his discharge. Patient began to taper off his oxazepam without any difficulty. Patient received his last dose of 10 mg of oxazepam this morning prior to his discharge. Patient passed occupational and physical therapy safety evaluations on 07/06/2019 and the patient was deemed ready for discharge at this time. Patient was discharged home. Patient had an extensive conversation with discharge planners about alcohol treatment and he has been given phone numbers of places to contact for outpatient treatment. DISCHARGE MEDICATIONS: Please see below. ALLERGIES: Please see below. PHYSICAL EXAMINATION ON DISCHARGE: Vitals: (see below) General: Alert and oriented male patient who was sitting in bed when I walked into the room. Patient was in no acute distress. HEENT: Moist mucous membranes. Cardiac: RRR, No murmurs Pulm: Clear to auscultation b/l. No wheezing, rhonchi Abd: Nondistended and nontender to palpation with normoactive bowel sounds. Ext: No edema or cyanosis LABORATORY DATA: Please see below. IMAGING: A CT of the head performed on 06/29/2019 was reported as essentially negative CT study of the brain. A portable chest x-ray performed on 06/29/2019 was reported as distal tip with nasogastric tube in the abdomen. Interstitial of the lungs is diffusely coarsened and indistinct this could represent hypoventilation or interstitial infiltrates. Portable chest x-ray performed 06/30/2019 was reported as bibasilar infiltrates, previous interstitial coarsening has improved, endotracheal tube terminating satisfactory in the trachea above the rogelio and nasogastric tube terminating satisfactorily in the upper abdomen Portable chest x-ray performed on 07/01/2019 was reported to show lines and tubes in satisfactory position, cardiomegaly, bibasilar opacities and small pleural effusion similar to prior exam. PROGNOSIS: Fair ACTIVITY: As tolerated. DIET: Regular DISCHARGE PLAN/DISPOSITION: Discharge home DISCHARGE INSTRUCTIONS: 1. Follow-up with primary care provider within 3-5 days. 2. Contact outpatient alcohol treatment programs to attend treatment based on information provided. 3. Finish cephalexin antibiotics with 1 dose this evening. 4. Return to the ER if you experience any problems DISCHARGE CONDITION: Stable. TIME SPENT ON DISCHARGE: 32 minutes. Vital Signs/I&Os Vital Signs Date Time Temp Pulse Resp B/P (MAP) Pulse Ox O2 Delivery O2 Flow Rate FiO2 07/06/19 06:00 98.3 59 16 117/66 (83) 93 Room Air 07/02/19 08:00 2.0 07/01/19 12:00 40 I&O- Last 24 Hours up to 6 AM 07/06/19 06:00 Intake Total 1500 ml Balance 1500 ml Laboratory Data Labs 24H Laboratory Tests 2 07/06/19 07:54: Nucleated Red Blood Cells % (auto) 0.0, Anion Gap 9, Glomerular Filtration Rate > 60.0, Calcium Level 8.3L CBC/BMP Laboratory Tests 07/06/19 07:54 Microbiology Microbiology 06/30/19 Gram Stain - Final, Complete 06/30/19 Sputum Culture - Final, Complete Staphylococcus Aureus Discharge Medications Scheduled Cephalexin (Cephalexin) 500 Mg Capsule, 1,000 MG PO BID Furosemide (Furosemide) 40 Mg Tablet, 40 MG PO DAILY, (Reported) Pramipexole Di-HCl (Pramipexole ER) 1.5 Mg Tab, 1.5 MG PO TID, (Reported) Trihexyphenidyl HCl (Trihexyphenidyl HCl) 2 Mg Tab, 2 MG PO TID, (Reported) Allergies Coded Allergies: No Known Allergies (Unverified , 11/29/16) GME ATTESTATION GME ATTESTATION My faculty preceptor for this patient encounter was physically present during the encounter and was fully available. All aspects of the patient interview, examination, medical decision making process, and medical care plan development were reviewed and approved by the faculty preceptor. The faculty preceptor is aware and concurs with the plan as stated in the body of this note and will attest to such by his/her cosignature. ATTENDING NOTE I, Santi Valenzuela, have independently examined this patient and performed my own physical exam, as well as reviewed the documentation and edited where necessary. I have discussed in detail with the resident / student the findings and plan of treatment as documented by the resident / student and edited their note. I agree with their findings and treatment plan and have edited their documentation. I will continue to follow the patient during this hospital stay. Time spent on discharge 34 minutes JURGEN LOMBARDI DO Jul 06, 2019 11:23 SANTI VALENZUELA MD Jul 06, 2019 12:16
== END 2019-07-06 14:50 | disposition home or self-care (01) | DRG 896 ==
LOC: M ED 08:34 → M ED INP 14:26 → ENRESERV 14:50 → M ICU 15:45 → M MSPAV 07-02 16:57
PROVIDERS: ADMIT Internal Medicine; ATTEND Internal Medicine
PROC: 5A1945Z Respiratory Ventilation, 24-96 Consecutive Hours (ICD-10-PCS; principal; 2019-06-29)
DX: F10.231 Alcohol dependence with withdrawal delirium (principal); G93.41 Metabolic encephalopathy; J96.00 Acute respiratory failure, unspecified whether with hypoxia or hypercapnia; J15.211 Pneumonia due to Methicillin susceptible Staphylococcus aureus; R44.0 Auditory hallucinations; G20 Parkinson's disease; F17.210 Nicotine dependence, cigarettes, uncomplicated; F12.10 Cannabis abuse, uncomplicated; R44.1 Visual hallucinations; E87.6 Hypokalemia; Z79.899 Other long term (current) drug therapy; Z91.14 Patient's other noncompliance with medication regimen; R56.9 Unspecified convulsions; R74.0 Nonspecific elevation of levels of transaminase and lactic acid dehydrogenase [LDH]

== ENCOUNTER → 2019-08-02 | Outpatient (REF) | payer MEDICARE ==
[~2019-08-02] MED LIST changes: +ALPR0.25 PO; +BUPR150T3 PO; +CEPH500C PO; +FURO40TA2 PO; +XANA0.25 PO
[2019-08-02 11:53] LABS: BLOOD UREA NITROGEN 13 MG/DL (7-18); CALCIUM LEVEL 8.9 MG/DL (8.5-10.1); CARBON DIOXIDE LEVEL 30 MEQ/L (21-32); CHLORIDE LEVEL 106 MEQ/L (98-107); CREATININE FOR GFR 0.88 MG/DL (0.70-1.30); GLOMERULAR FILTRATION RATE > 60.0 (>60); GLUCOSE, FASTING 78 MG/DL (70-100); SODIUM LEVEL 142 MEQ/L (136-145)
== END ==
LOC: M SHH 09:55
PROVIDERS: ATTEND Family Medicine
DX: E87.6 Hypokalemia (principal)

== ENCOUNTER → 2019-12-12 | Outpatient (CLI) | payer MEDICARE ==
--- NOTE | 2019-12-12 23:11 | ECGEPIP ---
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 No PVCs compared with 06/29/2019. Electronically Signed on 12-12-2019 23:11:20 EDT by Shar Chanel
== END ==
LOC: M EKG 11:48
PROVIDERS: ATTEND Family Medicine
DX: R03.0 Elevated blood-pressure reading, without diagnosis of hypertension (principal)

== ENCOUNTER → 2020-03-13 | Outpatient (CLI) | payer MEDICARE | LOC: M LABSMTC 12:36 | PROVIDERS: ATTEND Pediatrics | DX: Z20.828 Contact with and (suspected) exposure to other viral communicable diseases (principal) ==

== ENCOUNTER → 2021-08-14 | Outpatient (CLI) | payer MEDICARE ==
[~2021-08-14] MED LIST changes: +BUPR150T12 PO; -BUPR150T3 PO
== END ==
LOC: M RAD 11:49
PROVIDERS: ATTEND Internal Medicine
DX: R59.0 Localized enlarged lymph nodes (principal)

== ENCOUNTER → 2025-01-01 | Outpatient (REF) | payer MEDICARE ==
[~2025-01-01] MED LIST changes: -FLOM0.4C39 PO; +PRAM1.5T21 PO; -PRAM1TAB PO; +TAMS-18 PO
== END ==
LOC: M LAB REF 18:17
PROVIDERS: ATTEND Internal Medicine
DX: G62.9 Polyneuropathy, unspecified (principal)